=== PATIENT | male | born 1945 | race Caucasian/White ===

== ENCOUNTER 2018-09-01 11:30 | Emergency (ER) | payer OTHER ==
[~2018-09-01] VITALS: Ht 182.9 cm; Wt 74.8 kg
[2018-09-01 12:11] LABS: BASOPHILS ABSOLUTE AUTO 0.04 K/mm3 (0.00-0.23); BASOPHILS PERCENT AUTO 0 % (0-2); EOSINOPHILS ABSOLUTE AUTO 0.26 K/mm3 (0.00-0.68); EOSINOPHILS PERCENT AUTO 3 % (0-6); Hematocrit 45.5 % (37.0-53.0); Hemoglobin 15.2 g/dL (13.5-17.5); IMMATURE GRAN ABSOLUTE AUTO 0.02 K/mm3 (0.00-0.10); IMMATURE GRAN PERCENT AUTO 0 % (0-1); LYMPHOCYTES ABSOLUTE AUTO 1.75 K/mm3 (0.84-5.20); LYMPHOCYTES PERCENT AUTO 18 % (21-46); MONOCYTES ABSOLUTE AUTO 0.82 K/mm3 (0.16-1.47); MONOCYTES PERCENT AUTO 9 % (4-13); Mean Corpuscular HGB Conc 33.4 g/dL (31.5-36.5); Mean Corpuscular Volume 93 fL (80-100); Mean Platelet Volume 9.4 fL (9.1-12.4); NEUTROPHILS ABSOLUTE AUTO 6.61 K/mm3 (1.96-9.15); NEUTROPHILS PERCENT AUTO 70 % (41-73); Platelet Count 300 K/mm3 (150-400); RDW Coefficient Variation 12.4 % (11.7-14.2); RDW Standard Deviation 42.5 fL (35.1-46.3)
[2018-09-01 12:24] LABS: International Normalized Ratio 0.97; Prothrombin Time Results 10.3 Sec (9.7-11.5)
[2018-09-01 12:27] LABS: Alanine Aminotransfer (ALT/SGP 29 U/L (12-78); Albumin, Blood 3.8 g/dL (3.4-5.0); Alk Phos 58 U/L (50-136); Anion Gap 5 mmol/L (6-16); Aspartate Aminotrans (AST/SGOT 24 U/L (12-37); Bilirubin, Total 0.5 mg/dL (0.1-1.0); Blood Urea Nitrogen 16 mg/dL (8-24); Bun/Creatinine Ratio 18.5 (12.0-20.0); CO2, Blood 29 mmol/L (21-32); Calcium, Blood 8.7 mg/dL (8.5-10.1); Chloride, Blood 102 mmol/L (98-108); Creatinine, Blood 0.87 mg/dL (0.60-1.20); Globulin, Blood 3.7 g/dL (2.2-4.0); Glomerular Filtration Rate >60 (60-); Glucose, Blood 112 mg/dL (70-99); Potassium, Blood 4.4 mmol/L (3.5-5.5); Sodium, Blood 136 mmol/L (136-145); Total Protein, Blood 7.5 g/dL (6.4-8.2)
[2018-09-01 12:30] LABS: Troponin I <0.015 ng/mL (0.000-0.040)
== END 2018-09-01 14:10 | disposition home or self-care (01) ==
LOC: ER 11:30
PROVIDERS: Emergency Medicine
DX: J44.9 Chronic obstructive pulmonary disease, unspecified (principal); G89.29 Other chronic pain; Z88.0 Allergy status to penicillin; Z88.2 Allergy status to sulfonamides
CPT/HCPCS: 71046; 80053; 83735; 83880; 84443; 84484; 85025; 85610; 93005; 93010; 96360; 99285-25; J7030

== ENCOUNTER 2018-11-19 08:45 | Inpatient (IN) | payer MEDICARE ==
[~2018-11-19] VITALS: Ht 182.9 cm; Wt 70.3 kg
[2018-11-19] MEDS ORDERED: Inderal 20 mg T20 MG PT (09:08)
[2018-11-19 09:24] LABS: BASOPHILS ABSOLUTE AUTO 0.03 K/mm3 (0.00-0.23); BASOPHILS PERCENT AUTO 0 % (0-2); EOSINOPHILS ABSOLUTE AUTO 0.07 K/mm3 (0.00-0.68); EOSINOPHILS PERCENT AUTO 1 % (0-6); Hematocrit 46.3 % (37.0-53.0); Hemoglobin 15.2 g/dL (13.5-17.5); IMMATURE GRAN ABSOLUTE AUTO 0.02 K/mm3 (0.00-0.10); IMMATURE GRAN PERCENT AUTO 0 % (0-1); LYMPHOCYTES ABSOLUTE AUTO 0.86 K/mm3 (0.84-5.20); LYMPHOCYTES PERCENT AUTO 10 % (21-46); MONOCYTES ABSOLUTE AUTO 0.85 K/mm3 (0.16-1.47); MONOCYTES PERCENT AUTO 10 % (4-13); Mean Corpuscular HGB 30.5 pg (26.0-34.0); Mean Corpuscular HGB Conc 32.8 g/dL (31.5-36.5); Mean Corpuscular Volume 93 fL (80-100); Mean Platelet Volume 8.9 fL (9.1-12.4); NEUTROPHILS ABSOLUTE AUTO 6.55 K/mm3 (1.96-9.15); NEUTROPHILS PERCENT AUTO 78 % (41-73); Platelet Count 316 K/mm3 (150-400); RDW Coefficient Variation 12.2 % (11.7-14.2); RDW Standard Deviation 41.7 fL (35.1-46.3); Red Blood Cell Count 4.98 M/mm3 (4.30-5.90); White Blood Cell Count 8.38 K/mm3 (4.00-11.30)
[2018-11-19 09:37] LABS: PCO2 Arterial 43.4 mmHg (35-45); PO2 Arterial 58.8 mmHg (80-100); pH Blood Arterial 7.45 (7.35-7.45)
[2018-11-19 09:41] LABS: Influenza A Negative (NEGATIVE); Influenza B Negative (NEGATIVE)
[2018-11-19 09:43] LABS: Troponin I <0.015 ng/mL (0.000-0.040)
[2018-11-19 09:45] LABS: Alanine Aminotransfer (ALT/SGP 34 U/L (12-78); Albumin, Blood 3.6 g/dL (3.4-5.0); Alk Phos 60 U/L (50-136); Anion Gap 6 mmol/L (6-16); Aspartate Aminotrans (AST/SGOT 23 U/L (12-37); Bilirubin, Total 0.5 mg/dL (0.1-1.0); Blood Urea Nitrogen 9 mg/dL (8-24); Bun/Creatinine Ratio 12.7 (12.0-20.0); CO2, Blood 32 mmol/L (21-32); Chloride, Blood 98 mmol/L (98-108); Creatinine, Blood 0.71 mg/dL (0.60-1.20); Globulin, Blood 3.7 g/dL (2.2-4.0); Glomerular Filtration Rate >60 (60-); Glucose, Blood 130 mg/dL (70-99); Potassium, Blood 4.2 mmol/L (3.5-5.5); Sodium, Blood 136 mmol/L (136-145); Total Protein, Blood 7.3 g/dL (6.4-8.2)
[2018-11-19] MEDS ORDERED: MELA3 PO (12:43)
--- NOTE | 2018-11-19 18:30 | NUR ---
PATIENT ARRIVED TO MEDICAL FLOOR FROM ER. ADMISSION COMPLETED. PATIENT ORIENTED ROOM AND UNIT. PATIENT IN BED, LABORED BREATHING, ON ROOM AIR. DAUGHTER PRESENT AT BEDSIDE. BED LOW AND LOCKED, CALL LIGHT WITHIN REACH. WILL CONT TO MONITOR. NON SLIP SOCKS PLACED. TELE IN PLACE.
--- NOTE | 2018-11-19 22:12 | NUR ---
PT RESTING QUIETLY. CALL LT IN REACH.
--- NOTE | 2018-11-20 04:17 | NUR ---
SHIFT SUMMARY: ER ADMIT. A/O. HX OF PTSD PER DAUGHTER. ON RA. OCCASIONAL NECK PAIN WITH A TOLERABLE PAIN LEVEL OF 2-3. SR AT 67 WITH OCCASIONAL PAC'S. USES URINAL AT BEDSIDE. STATES DECREASE IN SOB. NO ACUTE CHANGES. WILL CONTINUE TO MONITOR UNTIL SHIFT REPORT.
[2018-11-20 04:31] LABS: BASOPHILS ABSOLUTE AUTO 0.01 K/mm3 (0.00-0.23); BASOPHILS PERCENT AUTO 0 % (0-2); EOSINOPHILS ABSOLUTE AUTO 0.01 K/mm3 (0.00-0.68); EOSINOPHILS PERCENT AUTO 0 % (0-6); Hematocrit 44.2 % (37.0-53.0); Hemoglobin 14.8 g/dL (13.5-17.5); IMMATURE GRAN ABSOLUTE AUTO 0.02 K/mm3 (0.00-0.10); IMMATURE GRAN PERCENT AUTO 0 % (0-1); LYMPHOCYTES ABSOLUTE AUTO 0.73 K/mm3 (0.84-5.20); LYMPHOCYTES PERCENT AUTO 9 % (21-46); MONOCYTES ABSOLUTE AUTO 0.54 K/mm3 (0.16-1.47); MONOCYTES PERCENT AUTO 7 % (4-13); Mean Corpuscular HGB 30.6 pg (26.0-34.0); Mean Corpuscular HGB Conc 33.5 g/dL (31.5-36.5); Mean Corpuscular Volume 91 fL (80-100); Mean Platelet Volume 8.8 fL (9.1-12.4); NEUTROPHILS ABSOLUTE AUTO 6.86 K/mm3 (1.96-9.15); NEUTROPHILS PERCENT AUTO 84 % (41-73); Platelet Count 289 K/mm3 (150-400); RDW Coefficient Variation 12.4 % (11.7-14.2); RDW Standard Deviation 40.9 fL (35.1-46.3); Red Blood Cell Count 4.84 M/mm3 (4.30-5.90); White Blood Cell Count 8.17 K/mm3 (4.00-11.30)
[2018-11-20 04:45] LABS: Alanine Aminotransfer (ALT/SGP 27 U/L (12-78); Albumin, Blood 3.4 g/dL (3.4-5.0); Albumin/Globulin Ratio 0.9 (0.8-1.8); Alk Phos 59 U/L (50-136); Anion Gap 7 mmol/L (6-16); Aspartate Aminotrans (AST/SGOT 18 U/L (12-37); Bilirubin, Total 0.4 mg/dL (0.1-1.0); Blood Urea Nitrogen 14 mg/dL (8-24); Bun/Creatinine Ratio 18.9 (12.0-20.0); CO2, Blood 31 mmol/L (21-32); Calcium, Blood 8.8 mg/dL (8.5-10.1); Chloride, Blood 96 mmol/L (98-108); Creatinine, Blood 0.74 mg/dL (0.60-1.20); Globulin, Blood 3.7 g/dL (2.2-4.0); Glomerular Filtration Rate >60 (60-); Glucose, Blood 147 mg/dL (70-99); Potassium, Blood 4.5 mmol/L (3.5-5.5); Sodium, Blood 134 mmol/L (136-145); Total Protein, Blood 7.1 g/dL (6.4-8.2)
[2018-11-20 05:05] LABS: PCO2 Arterial 49.3 mmHg (35-45); PO2 Arterial 69.2 mmHg (80-100); pH Blood Arterial 7.41 (7.35-7.45)
--- NOTE | 2018-11-20 17:10 | NUR ---
SHIFT SUMMARY PT INDEPENDENT IN ROOM. DOES HAVE DYSPNEA WITH ACTIVITY WALKING TO BATHROOM AND BACK. OTHERWISE REPORTS ONLY OCC INSPECTOR WATCH ASSEMBLY COUGH AND FEELINGS MUCH BETTER THAN WHEN HE FIRST ARRIVED. FAMILY IN AND OUT OF ROOM. DR. ATWOOD IN TO SEE PT AND PLANS FOR BRONCHOSCOPY TOMORROW AT 1330. TO BE NPO AT [facility].
[2018-11-21 04:41] LABS: BASOPHILS ABSOLUTE AUTO 0.01 K/mm3 (0.00-0.23); BASOPHILS PERCENT AUTO 0 % (0-2); EOSINOPHILS PERCENT AUTO 0 % (0-6); Hemoglobin 14.9 g/dL (13.5-17.5); IMMATURE GRAN ABSOLUTE AUTO 0.05 K/mm3 (0.00-0.10); IMMATURE GRAN PERCENT AUTO 0 % (0-1); LYMPHOCYTES ABSOLUTE AUTO 0.84 K/mm3 (0.84-5.20); LYMPHOCYTES PERCENT AUTO 6 % (21-46); MONOCYTES ABSOLUTE AUTO 0.98 K/mm3 (0.16-1.47); MONOCYTES PERCENT AUTO 7 % (4-13); Mean Corpuscular HGB Conc 33.9 g/dL (31.5-36.5); Mean Corpuscular Volume 92 fL (80-100); Mean Platelet Volume 9.1 fL (9.1-12.4); NEUTROPHILS ABSOLUTE AUTO 11.95 K/mm3 (1.96-9.15); NEUTROPHILS PERCENT AUTO 86 % (41-73); Platelet Count 314 K/mm3 (150-400); RDW Coefficient Variation 12.6 % (11.7-14.2); RDW Standard Deviation 42.4 fL (35.1-46.3); Red Blood Cell Count 4.81 M/mm3 (4.30-5.90); White Blood Cell Count 13.83 K/mm3 (4.00-11.30)
[2018-11-21 04:57] LABS: Anion Gap 3 mmol/L (6-16); Blood Urea Nitrogen 14 mg/dL (8-24); Bun/Creatinine Ratio 20.2 (12.0-20.0); CO2, Blood 33 mmol/L (21-32); Chloride, Blood 98 mmol/L (98-108); Creatinine, Blood 0.69 mg/dL (0.60-1.20); Glomerular Filtration Rate >60 (60-); Glucose, Blood 151 mg/dL (70-99); Potassium, Blood 4.6 mmol/L (3.5-5.5); Sodium, Blood 134 mmol/L (136-145)
--- NOTE | 2018-11-21 06:44 | NUR ---
Rn summary: Patient is alert and oriented. Pt has denied pain this shift. Pt is up independantly to the BR. Pt has been NPO since midnight for Bronchoscopy today at 1330. Pt states he has rested fairly well. Call light in reach. Will continue to monitor.
--- NOTE | 2018-11-21 13:12 | NUR ---
INTO SDS ADMISSION TO UNIT STARTED. PATINET VERIFIES NPO NO METAL IN BODY AND VERIFIES ALLERGIES
--- NOTE | 2018-11-21 13:47 | NUR ---
DAY SURGERY HERE TO PICK PT UP AT 1330 FOR PROCEDURE. OUT [employer]IA [employer]
--- NOTE | 2018-11-21 14:05 | NUR ---
11/21/18 1405 Minesh Estrada 3-LEAD EKG REVIEWED WITH PHYSICIAN PRIOR TO START OF PROCEDURE.Patient to ENDO 2History, Chart, Medications and Allergies reviewed before start of procedure.Glasses RemovedMONITOR INTACT WITH CONTINUOUS PULSE OXIMETRY AND INTERMITTENT BP.O2 VIA N/C INTACT THROUGHOUT SEDATION/PROCEDURE.
--- NOTE | 2018-11-21 14:37 | NUR ---
REPORT TO LOUANN WALDRON AND RN MEDICAL FLOOR
--- NOTE | 2018-11-21 18:34 | NUR ---
SHIFT SUMMARY PT RETURNED FROM BRONCHOSCOPY THIS AFTERNOON AWAKE AND ALERT. DAUGHTER AT BEDSIDE. SOUNDS ORALLY CONGESTED BUT REPORTS HE ISN'T COUGHING ANYTHING UP. NEEDED OXYGEN FOR APPROX 1 HOUR AFTER RETURN FROM PROCEDURE. KEPT NPO FOR 2 HOURS AFTER RETURN. TOLERATED JELLO AND DRINKS AFTER THAT. SUPPER ORDERED. WALKED IN HALLWAY USING FWW FOR SHORT DISTANCE AND REPORTED ONLY HIS LEGS FEELING WEAK.
--- NOTE | 2018-11-22 06:14 | NUR ---
PT is with chronic pain who has grown marijuana and smokerd it to telieve his chronic pain. he says he does not buy MJ and does not use chemicals to grow it. Discussed need to avoid smoke and other routes for pain relief. PT had bronchoscopy yesterday and he continues on IV antibiotics to treat URI. PT on [employer] oxygen monitor and has been on room air this AM with sats greater than 90%. No persistant bradycardia. PT alert and pleasant denies acute distress. DTR was in and got very aggitated with PT not having his nighttime meds by 910 pm. later said she was sorry, she is worried about her Dad and stressed. Support offered.
--- NOTE | 2018-11-22 16:21 | NUR ---
SHIFT SUMMARY PT INDEPENDENT IN ROOM. AMBULATED IN HALLWAY USING FWW APPROX 100 FT THIS MORNING. DAUGHTER AT BEDSIDE ON AND OFF. WENT FOR A MODIFIED BARIUM SWALLOW THIS MORNING AND NOW IS NPO DUE TO RISK OF ASPIRATION. PLANS FOR A PEG TUBE PLACEMENT FOR NUTRITIONAL SUPPORT. PT AGREEABLE AND CURRENTLY APPEARS IN [employer]. REPORTS HE HAD A SON THAT USED A FEEDING TUBE MANY YEARS AGO. ORAL CARE OFFERED.
--- NOTE | 2018-11-23 06:46 | NUR ---
73 year old [place] with agent [place] exposure has hx of BArretts esphagous and had modified barium swallow yesterday due to URI with large mucus plug seen on bronchoscopy 11/21/18. PT is NPO and reports DR Deal consulted and plans to place feeding tube. Weaned off oxygen to room air no desats noted on bioxx monitor. Did have bioxx alarm intermittantly for bradycardia transient in low 50'. Pleasant. Denies acute distress.
--- NOTE | 2018-11-23 14:46 | NUR ---
11/23/18 1446 Vida Pozo History, Chart, Medications and Allergies reviewed before start of procedure.Patient confirms NPO status and agrees with scheduled surgery. DUONEB GIVEN PREOP PER DR. KNUTSON. REJI GARRETT. SEE ANESTHETIC RECORD FOR CARE
--- NOTE | 2018-11-23 14:47 | NUR ---
PT INTO [facility] VIA [facility] FOR PEG TUBE. History, Chart, Medications and Allergies reviewed before start of procedure.Patient confirms NPO status and agrees with scheduled surgery. Surgical site prepped with 2% Chlorhexidine cloth wipe. CLIP PREP DONE TO ABDOMEN. PT ON SCHEDULED ANTIBIOTICS.
--- NOTE | 2018-11-23 18:22 | NUR ---
SHIFT SUMMARY OX3 SBA STEADY GAIT. PLEASANT, COOPERATIVE. OX4. PEG TUBE PLACED TODAY SITE HEALTHY GAUZED CLEAN AND DRY. DAUGHTER AT BEDSIDE AND ATTENTIVE. HX AGUILERA'S ESOPHAGUS. CLINIMIX. TRANSIENT BRADYCARDIA LOW 50'S. CONTINUOUS BIOX. USED MARIJUANA FOR CHRONIC PAIN ISSUES.
--- NOTE | 2018-11-24 05:18 | NUR ---
73 year old Male [place] with agent orange exposure in [employer] had peg tube place yesterday afternoon due to failing modified barium swallow 60 lb wt loss last year aspiration pneumonia. Peg tube clamped , oral sx set up and used Q 4 hours for oral care. NPO except for occasional ice chip per surgeon. On clinimix for nutritional support. Surgeon says of to use tube today, dietary referral for nutrional support. Intermittant nausea with zofran given. Lungs have cleared after NPO, bronchoscopy, egd. Verbalized understanding of tube feeding had Child with buttonand familair with tube feed bolus versus continous feed. Pleasant affect. Medicated for anxiety with 0.5 mg IV atavan x 1 with helpful effect. Preliminary results from bronch showed lelia alb in sputum. On IV antibiotics to tx aspiration pneumonia. DTR in and supportive.
--- NOTE | 2018-11-24 17:32 | NUR ---
SHIFT SUMMARY IRON HAS BEEN FEELING REALLY WEAK AND TIRED TODAY. COMPLAINS OF ABDOMINAL PAIN, GOT 5MG PO OXY BY PEG. PEG CLEARED BY DR RINCON FOR USE AND TF INITIATED, PT STILL NPO. CBG Q6 INITIATED. ORAL CARE OFFERED AND PROVIDED AT LEAST Q4 HRS. NO BM SINCE MONDAY, BOWEL PROTOCOL INITIATED. NO BLOATING/ABDOMINAL DISTENSION/ADDITIONAL DISCOMFORT ONCE TF INITIATED, STILL AT SLOW RATE OF 25ML/HR. USED URINAL IN BED, GOT UP TO BR ONCE WITH SBA, UNSTEADY ON FEET. DAUGHTER VISITED. CALL LIGHT IN REACH, TM
--- NOTE | 2018-11-25 03:55 | NUR ---
11/25/18 0345 AWAKENED FOR LABWORK AND VITALS. SELF SUCTIONS HIMSELF ORALLY OF SECRETIONS. NO COMPLAINTS AT THIS TIME. ORAL CARE WITH SWABS BY HIMSELF. VOIDING QS.
[2018-11-25 04:48] LABS: Anion Gap 6 mmol/L (6-16); Blood Urea Nitrogen 18 mg/dL (8-24); Bun/Creatinine Ratio 26.7 (12.0-20.0); CO2, Blood 35 mmol/L (21-32); Calcium, Blood 8.8 mg/dL (8.5-10.1); Chloride, Blood 90 mmol/L (98-108); Creatinine, Blood 0.67 mg/dL (0.60-1.20); Glomerular Filtration Rate >60 (60-); Glucose, Blood 119 mg/dL (70-99); Magnesium, Blood 1.9 mg/dL (1.6-2.4); Phosphorus, Blood 3.7 mg/dL (2.5-4.9); Potassium, Blood 4.2 mmol/L (3.5-5.5); Sodium, Blood 131 mmol/L (136-145)
--- NOTE | 2018-11-25 06:03 | NUR ---
11/25/18 0545 TUBE FEEDING RESIDUAL AT 2200 AND 0545 = <1 ML. FEEDING INCREASED TO 45ML/HOUR AT 2200 AND 60ML/HOUR AT 0545. PEG TUBE FLUSHES WELL AND DRESSING REMAINS DRY AND INTACT. VITALS STABLE. NPO. VOIDING QS. NO BM THIS SHIFT. MEDICATED TWICE FOR BACK/NECK DISCOMFORT. SEE MAR.
--- NOTE | 2018-11-25 16:41 | NUR ---
SHIFT SUMMARY- PT HAS BEEN TOLLERATING TUBE FEEDINGS WELL T/O THE DAY AND IS AT THE TARGET RATE FOR FEEDINGS. PT HAD A C/O PAIN IN THE AFTERNOON ONE DOSE OF PAIN MEDICAION. PT STATED PAIN IS WELL MANAGED AT THIS TIME. PT HAS ASSISTED WITH PEG TUBE MEDICATIONS TODAY ASKING QUESTIONS AND HANDS ON ASSISTING WITH THE TUBE. PT SEEMS MORE COMFORTABLE WITH IT AT THIS TIME. RESIDUAL WAS 50ML AT 0800, PT C/O NAUSEA BUT STATED HE DIDN'T QUITE NEED THE REGLAN NAUSEA SUBSIDED ON ITS OWN. PT C/O PAIN IN BACK AND ABDOMEN RESIDUAL CHECKED 25ML, MEDICATED WITH OXY AND MILK OF MAG. PT STATED THE PAIN HAS GONE AWAY WITH OCCASSIONAL PANGS IN THE STOMACH. MILK OF MAG HAS HAD NO RESULTS OF YET.
--- NOTE | 2018-11-26 04:06 | NUR ---
11/26/18 0315 C/O BACK PAIN AND MEDICATED PER APR. PEG TUBE IN PLACE AND PATENT. DENIES ANY NAUSEA JUST OCC. "CRAMPING " IN ABDOMEN. WAS UP TO BATHROOM WITH SBA FOR VOIDING AND FLATUS EXPULSION. NO BM. RESIDUALS ON PEG FEEDINGS WERE 12 AND 15 ML. FEEDINGS AT 60ML/HOURS WITH WATER FLUSHES PER ORDER Q 4 HOURS.
[2018-11-26 05:04] LABS: Magnesium, Blood 1.9 mg/dL (1.6-2.4); Phosphorus, Blood 3.4 mg/dL (2.5-4.9)
--- NOTE | 2018-11-26 07:20 | NUR ---
ASSUMED CARE OF PT- RECIEVED REPORT FROM NIGHT JOSE ANTONIO DUDLEY. PT ALERT, ORIENTED, 1PA WITH TRANSFERS FOR SAFETY AND IS CURRENTLY SITTING UP IN THE CHAIR. PT STATED HE HAD SOME SEVERE STOMACH CRAMPING THIS MORNING BUT IS FEELING ALOT BETTER NOW THAN HE WAS. WILL ASSESS SHORTLY AND CTM.
--- NOTE | 2018-11-26 07:46 | NUR ---
SPOKE TO DR RINCON PT SBP 104 THIS MORNING OK TO HOLD PROPRANOLOL THIS MORNING. NEW PARAMETERS PLACED YO HOLD FOR SBP BELOW 110.
--- NOTE | 2018-11-26 08:26 | NUR ---
PATIENT DID NOT EAT BREAKFAST THIS SHIFT DUE TO BEING NPO AT THIS TIME.
[2018-11-26] MEDS ORDERED: ALBU2.5V5 INH (10:23)
[2018-11-26] MEDS ORDERED: BISA10S PR (10:26)
[2018-11-26] MEDS ORDERED: Docu Liqui50 MG/5 ML PT (10:27)
[2018-11-26] MEDS ORDERED: ALBU3IS INH (10:29)
[2018-11-26] MEDS ORDERED: LORA2L PO (10:30)
[2018-11-26] MEDS ORDERED: Milk Of Ma400 MG/5 M PT (10:31)
[2018-11-26] MEDS ORDERED: ONDA4ODT MM (10:33)
[2018-11-26] MEDS ORDERED: ROXICODONE5 MG PT (10:34)
[2018-11-26] MEDS ORDERED: Florastor250 MG PT (10:35)
[2018-11-26] MEDS ORDERED: CLIN300 PT (10:38)
--- NOTE | 2018-11-26 12:43 | NUR ---
PATIENT DID NOT EAT LUNCH THIS SHIFT DUE TO BEING NPO AT THIS TIME.
[2018-11-26] MEDS ORDERED: FAMO20 PT (14:38)
--- NOTE | 2018-11-26 17:52 | NUR ---
Initial Visit: Pt alert, oriented. Admitted for pneumonia, aspiration. PEG tube is placed. Pt has been interactive with nursing and learning how to do medications and tube feedings through the PEG. Pt denies pain at this time, seems a little anxious. Reports that he feels comfortable asking for anxiety medication as he needs it. Apparently, he felt panic today. He didn't require medication at that time. He states that the panic and anxiety resolved after 10 min or so. Pt is getting new IV placed. Due to insurance complications, pt wasn't sent today to SNF. it communications manager is addressing it and hopeful that a solution is found tomorrow. Reviewed code status. Pt didn't know what FULL code was. This was explained. Pt appears to be under some stress and emotional strain with his new lifestyle with the PEG. POLST form and advance directive explained and given to his daughter. She lives with him and helps him when he needs it. They have several acres of wetland in [place]. He states that this is a preserved area and nothing can be built on it so that it keeps the wildlife there. He reports pleasure at watching the birds on his property. Pt and daughter verbalize understanding of uses and purpose of POLST and advance directive forms. Instructed to review it together at home, when he is not under duress of hospitalization. No other questions or concerns.
--- NOTE | 2018-11-26 18:46 | NUR ---
PATIENT DID NOT EAT DINNER THIS SHIFT DUE TO BEING NPO AT THSI TIME.
--- NOTE | 2018-11-26 18:53 | NUR ---
SHIFT SUMMARY- PT WAS SUPPOSED TO DC TODAY HOWEVER THERE WERE COMPLICATIONS WITH THE PAPERWORK. JOSE ANTONIO VERGARA FROM [employer] IS ON THE CASE. PT IV WAS DC'D PRIOR TO THE PLANNED DISCHARGE. A NEW ONE WAS PLACED IN THE RIGHT FORE ARM, THAT INFILTRATED WITH THE ABX INFUSING. REMOVED IT AND PLACED A NEW IV IN THE LEFT FORE ARM.
--- NOTE | 2018-11-27 04:03 | NUR ---
11/27/18 0400 SLEEPING. PEG TUBE FEEDING TOLERATED WELL. RESIDUALS LESS THAN 10 ML. MEDICATED FOR PAIN AND ANXIETY AT 2109 AND PT HAD GOOD RELIEF FROM BOTH. STATED EARLIER THAT THIS WAS HIS BEST NIGHT'S SLEEP "SO FAR". VITALS STABLE. VOIDING SQ AND HAD ONE BM ON DAY SHIFT.
[2018-11-27 05:18] LABS: Phosphorus, Blood 3.7 mg/dL (2.5-4.9)
--- NOTE | 2018-11-27 08:32 | NUR ---
PATIENT DID NOT EAT BREAKFAST THIS SHIFT DUE TO BEING NPO AT THIS TIME.
--- NOTE | 2018-11-27 17:20 | NUR ---
SHIFT SUMMARY: PT IS A/O X 4 AND VERY PLEASANT AND COOPERATIVE WITH HIS CARE. HE HAS NO C/O PAIN. PUMP TUBE FEEDINGS WERE DCD TODAY AND CHANGED TO BOLUS FEEDINGS PER ORDERS. SO FAR PT IS TOLERATING BOLUS FEEDING WELL WITH NO RESIDUAL NOTED. EDUCATION COMPLETED WITH PT RE TUBE FEEDINGS AND PT IS EASGER TO LEARN AND MANAGE HIS OWN CARE. IV ABO INFUSED ORDERED WITH NO ISSUES. PT IS ABLE TO MAKE HIS NEEDS KNOWN AND UESE URINAL AT BEDSIDE NEEDED.
--- NOTE | 2018-11-28 04:42 | NUR ---
SCIENTIFIC SOFTWARE ENGINEER SUMMARY NOTE PATIENT TOLERATING BOLUS TUBE FEEDS WELL WITHOUT RESIDUALS OR DISCOMFORT. ABLE TO PARTICIPATE IN PROCESS WITHOUT DIFFICULTLY. . COMPLAINTS OF LOW BACK PAIN AROUND 0300 AND GOT UP IN CHAIR FOR RELIEF. OXYCODONE GIVEN PER ORDER PER PEG TUBED, STOOL PLACED FOR FEET AND KPAD SET UP TO AID IN RELIEF. PATIENT STATED PAIN DECREASED FROM 5/10 TO 3/10 WHICH WAS TOLERABLE. PATIENT EXCITED TO BE GETTING READY TO GO HOME.
--- NOTE | 2018-11-28 18:21 | NUR ---
DISCHARGE AT 1725 PATIENT DISCHARGED HOME WITH DAUGHTER. 2 CASES OF TUBE FEED CARTONS SENT WITH PATIENT. PORTABLE HOME SUCTION UN[facility] BY DAUGHTER AND RT INSTRUCTED PATIENT AND DAUGHTER HOW TO USE. PT TOLERATED ALL TUBE FEEDS AND FLUSHES TODAY, CAN MANAGE HIMSELF. DC PACKET GIVEN TO PATIENT, MED CHANGES EXPLAINED. IV REMOVED. PT SIGNED DC FORM.
== END 2018-11-28 17:25 | disposition home health service (06) | DRG 177 ==
LOC: ER 08:45 → MEDS 08:46 → ERHOLD 08:46 → MEDS 17:48 → EDPENDDIS 11-26 10:37 → ENPENDDIS 11-26 10:37 → MEDS 11-28 17:25
PROVIDERS: Internal Medicine; Internal Medicine Pulmonary Disease; Nurse Practitioner Acute Care; Physician Assistant; ADMIT Internal Medicine
PROC: 0B9J8ZX Drainage of Left Lower Lung Lobe, Via Natural or Artificial Opening Endoscopic, Diagnostic (ICD-10-PCS; principal; 2018-11-21 13:30)
PROC: 0DH63UZ Insertion of Feeding Device into Stomach, Percutaneous Approach (ICD-10-PCS; 2018-11-23)
DX: J69.0 Pneumonitis due to inhalation of food and vomit (principal); E43 Unspecified severe protein-calorie malnutrition; J96.22 Acute and chronic respiratory failure with hypercapnia; J96.21 Acute and chronic respiratory failure with hypoxia; E87.1 Hypo-osmolality and hyponatremia; J44.1 Chronic obstructive pulmonary disease with (acute) exacerbation; R64 Cachexia; K80.10 Calculus of gallbladder with chronic cholecystitis without obstruction; G89.4 Chronic pain syndrome; F12.10 Cannabis abuse, uncomplicated; Z87.891 Personal history of nicotine dependence; R13.12 Dysphagia, oropharyngeal phase; K44.9 Diaphragmatic hernia without obstruction or gangrene; K29.80 Duodenitis without bleeding; K22.70 Barrett's esophagus without dysplasia; Z68.21 Body mass index [BMI] 21.0-21.9, adult; K59.00 Constipation, unspecified
CPT/HCPCS: 36415; 36600; 71045; 71046; 71260; 74230; 76705; 80048; 80053; 82378; 82803; 82947; 83735; 83880; 84100; 84145; 84484; 85025; 87070; 87205; 87804; 92610; 92611; 93005; 93010; 94640; 94667; 94760; 94761; 94762; 96365-59; 96372; 96375-59; 96376; 97110; 97116; 97161; 97165; 97530; 97535; 99285-25; A9270; C1769; C9113; G0378; J0694; J1650; J1956; J2001; J2060; J2250; J2704; J2920; J2930; J3010; J7050; J7120; J7512; Q9967

== ENCOUNTER 2018-12-01 21:34 | Inpatient (IN) | payer OTHER, MEDICARE ==
[~2018-12-01] VITALS: Ht 182.9 cm; Wt 71.2 kg
[~2018-12-01 21:34] MED LIST: ALBU2.5V5 NEB; ALBU3IS NEB; BISA10S PR; CLIN300 PT; Docu Liqui50 MG/5 ML PT; FAMO20 PT; Florastor250 MG PT; Inderal 20 mg T20 MG PT; LORA2L PT; Milk Of Ma400 MG/5 M PT; ONDA4ODT MM; ROXICODONE5 MG PT
[2018-12-01 21:48] LABS: BASOPHILS ABSOLUTE AUTO 0.03 K/mm3 (0.00-0.23); BASOPHILS PERCENT AUTO 0 % (0-2); EOSINOPHILS ABSOLUTE AUTO 0.24 K/mm3 (0.00-0.68); EOSINOPHILS PERCENT AUTO 1 % (0-6); Hematocrit 39.7 % (37.0-53.0); Hemoglobin 13.4 g/dL (13.5-17.5); IMMATURE GRAN PERCENT AUTO 1 % (0-1); LYMPHOCYTES ABSOLUTE AUTO 0.94 K/mm3 (0.84-5.20); LYMPHOCYTES PERCENT AUTO 4 % (21-46); MONOCYTES ABSOLUTE AUTO 2.21 K/mm3 (0.16-1.47); MONOCYTES PERCENT AUTO 9 % (4-13); Mean Corpuscular HGB 31.1 pg (26.0-34.0); Mean Corpuscular HGB Conc 33.8 g/dL (31.5-36.5); Mean Corpuscular Volume 92 fL (80-100); NEUTROPHILS ABSOLUTE AUTO 21.47 K/mm3 (1.96-9.15); NEUTROPHILS PERCENT AUTO 86 % (41-73); Platelet Count 353 K/mm3 (150-400); RDW Coefficient Variation 11.8 % (11.7-14.2); RDW Standard Deviation 40.1 fL (35.1-46.3); Red Blood Cell Count 4.31 M/mm3 (4.30-5.90); White Blood Cell Count 25.09 K/mm3 (4.00-11.30)
[2018-12-01 21:50] LABS: Calcium, Ionized (POC) 1.07 mmol/L (1.10-1.46); Chloride (POC) 82 mmol/L (98-108); Creatinine (POC) 0.6 mg/dL (0.8-1.3); Glucose (ISTAT POC) 163 mg/dL (70-99); Potassium (POC) 4.9 mmol/L (3.5-5.5); Sodium (POC) 120 mmol/L (135-148); Total CO2 (POC) 33 mmol/L (21-32)
[2018-12-01 22:09] LABS: Alanine Aminotransfer (ALT/SGP 20 U/L (12-78); Albumin, Blood 2.7 g/dL (3.4-5.0); Albumin/Globulin Ratio 0.7 (0.8-1.8); Alk Phos 58 U/L (50-136); Anion Gap 3 mmol/L (6-16); Aspartate Aminotrans (AST/SGOT 14 U/L (12-37); Bilirubin, Total 0.5 mg/dL (0.1-1.0); Blood Urea Nitrogen 15 mg/dL (8-24); Bun/Creatinine Ratio 26.3 (12.0-20.0); CO2, Blood 36 mmol/L (21-32); Calcium, Blood 8.4 mg/dL (8.5-10.1); Chloride, Blood 83 mmol/L (98-108); Creatinine, Blood 0.57 mg/dL (0.60-1.20); Globulin, Blood 3.7 g/dL (2.2-4.0); Glomerular Filtration Rate >60 (60-); Glucose, Blood 158 mg/dL (70-99); Sodium, Blood 122 mmol/L (136-145); Total Protein, Blood 6.4 g/dL (6.4-8.2); Troponin I <0.015 ng/mL (0.000-0.040)
[2018-12-01] MEDS ORDERED: MELA3 PT (22:13)
--- NOTE | 2018-12-02 00:45 | NUR ---
PT ARRIVES TO ICU 15 VIA BED FROM THE [facility] POST PCI TO MID AND DISTAL RCA. PT IS ALERT AND ORIENTED AND SPEAKING IN FULL SENTENCES. HE DENIES CP ALTHOUGH ADMITS TO SOME CHEST PRESSURE WHICH HE RATES 2-3/10, HE DENIES N/V, DENIES NUMBNESS/TINGLING AND ADMITS TO SOME SHORTNESS OF BREATH WHICH HAS BEEN ONGOING FOR SOME TIME, RECENT ADMIT WITH DX OF PNEUMONIA WAS NOTED. NO VISIBLE INCREASED WORK OF BREATHING IS NOTED AT THIS TIME AND LUNGS ARE CLEAR THROUGHOUT WITH DIM BASES BILAT, SATS ARE MAINTAINING ON ROOM AIR. HRR, SINUS TO SINUS NORMA ON MONITOR, ST ELEVATION CONTINUES AND PER [facility]ENTER RN THIS HAS BEEN ONGOING AND DR SALAS IS AWARE, PULSES ARE FULL X 4, CAP REFILL IS BRISK, NO EDEMA IS NOTED. TR BAND IN PLACE TO RIGHT RADIAL ACCESS SITE, NO BLEEDING, SWELLING, OR BRUISING IS NOTED AT THIS TIME, WILL CONT TO MONITOR. ABD SOFT, NONTENDER TO PALPATION, ACTIVE BOWEL TONES X 4, PEG TUBE IS NOTED TO LEFT ABD, GAUZE DRESSING IS CDI, NO REDNESS, SWELLING, OR DRAINAGE NOTED AT THIS TIME.
--- NOTE | 2018-12-02 02:55 | NUR ---
TR BAND DEFLATION 1 ML AIR REMOVED FROM TR BAND, SITE REMAINS STABLE AT THIS TIME, WILL MONITOR.
--- NOTE | 2018-12-02 03:16 | NUR ---
TR BAND DEFLATION 2 ML AIR REMOVED FROM TR BAND, SITE REMAINS STABLE AT THIS TIME, WILL CONT TO MONITOR.
--- NOTE | 2018-12-02 03:28 | NUR ---
TR BAND DEFLATION 2 ML AIR REMOVED FROM TR BAND, SITE REMAINS STABLE, WILL CONT TO MONITOR.
--- NOTE | 2018-12-02 03:47 | NUR ---
TR BAND DEFLATION 2 ML AIR REMOVED FROM TR BAND, SITE REMAINS STABLE, WILL CONT TO MONITOR.
--- NOTE | 2018-12-02 03:59 | NUR ---
TR BAND DEFLATION 2 ML AIR REMOVED FROM TR BAND, SITE REMAINS STABLE, WILL CONT TO MONITOR.
--- NOTE | 2018-12-02 04:22 | NUR ---
TR BAND DEFLATION TR BAND DEFLATION COMPLETE, SITE REMAINS STABLE AT THIS TIME, WILL CONT TO MONITOR.
--- NOTE | 2018-12-02 05:30 | NUR ---
TR BAND REMOVED, SITE CLEANSED WITH CHLORHEXIDINE AND TEGADERM DRESSING APPLIED. MOVEMENT RESTRICTIONS REINFORCED TO PT. SITE REMAINS STABLE.
[2018-12-02 06:09] LABS: Hemoglobin 13.3 g/dL (13.5-17.5); Mean Corpuscular HGB 30.9 pg (26.0-34.0); Mean Corpuscular HGB Conc 34.1 g/dL (31.5-36.5); Mean Corpuscular Volume 91 fL (80-100); Mean Platelet Volume 8.9 fL (9.1-12.4); Platelet Count 301 K/mm3 (150-400); RDW Coefficient Variation 11.9 % (11.7-14.2); RDW Standard Deviation 39.7 fL (35.1-46.3); Red Blood Cell Count 4.31 M/mm3 (4.30-5.90); White Blood Cell Count 21.61 K/mm3 (4.00-11.30)
--- NOTE | 2018-12-02 06:21 | NUR ---
PT FREQUENTLY AWAKE SINCE ADMIT THIS SHIFT, HAS COMPLAINED OF ANXIETY AND REQUESTED HIS HOME DOSE OF LORAZEPAM AFTER ARRIVAL FROM [facility]. LORAZEPAM WAS ADMINISTERED VIA PEG TUBE AND PT HAS BEEN NOTED TO APPEAR TO SLEEP FOR PERIODS OF LESS THAN 30 MINUTES AFTER TIME OF ONSET HOWEVER HIS DAUGHTER WHO REMAINS AT BEDSIDE REPORTS THAT PT HAS BEEN STARTLING HIMSELF AWAKE. HE CONTINUES TO HAVE ST ELEVATION APPARENT ON MONITOR, DR SALAS REPORTED TO BE AWARE AND FOLLOW UP EKG WAS ORDERED FOR THIS AM AND COMPLETED. PT HAS DENIED CHEST PAIN SINCE ARRIVAL AND ADMITS TO CHEST PRESSURE RATED AT 2-3/10. HIS TR BAND WAS DEFLATED AND REMOVED FROM RIGHT RADIAL ACCESS SITE WHICH REMAINS STABLE AT THIS TIME. THERE IS AN AREA OF FIRMNESS NOTED TO FOREARM IMMEDIATELY DISTAL TO RIGHT AC ON ELECTRODE PLACEMENT FOR AM EKG, THERE WERE NO CHANGES TO THIS AREA OVER 30 MINUTES AT BEDSIDE, PT STATES THAT HE IS UNSURE IF THIS IS A CHANGE FROM BASELINE, COMPARED TO LEFT FOREARM AND DISCUSSED WITH HOME ORGANIZER. HE DOES ADMIT TO SOME SHORTNESS OF BREATH HOWEVER HAS DECLINED UDN UNTIL AFTER AM LAB DRAW, RT WAS NOTIFIED OF PT REQUEST, CURRENTLY AWAITING ARRIVAL.
[2018-12-02 06:36] LABS: Anion Gap 4 mmol/L (6-16); Blood Urea Nitrogen 13 mg/dL (8-24); Bun/Creatinine Ratio 25.4 (12.0-20.0); CO2, Blood 33 mmol/L (21-32); CPK Creatine Kinase 41 U/L (39-308); Chloride, Blood 86 mmol/L (98-108); Creatinine, Blood 0.51 mg/dL (0.60-1.20); Glomerular Filtration Rate >60 (60-); Glucose, Blood 161 mg/dL (70-99); Potassium, Blood 4.6 mmol/L (3.5-5.5); Sodium, Blood 123 mmol/L (136-145)
[2018-12-02 06:40] LABS: Troponin I 0.074 ng/mL (0.000-0.040)
--- NOTE | 2018-12-02 08:00 | NUR ---
INITIAL ASSESSMENT PATIENT RESTING QUIETLY IN BED UPON ENTERING ROOM. DAUGHTER ON COT AT BEDSIDE. PATIENT ALERT AND ORIENTED X 4, AFEBRILE. PATIENT DENIES PAIN AT THIS TIME. PATIENT ANXIOUS AT TIMES AND STATES HE TAKES ATIVAN AT HOME FOR ANXIETY. PATIENT WEAK BUT ABLE TO MOVE ALL EXTREMITIES. PATIENT REPORTS CHRONIC NUMBNESS IN FINGERS AND TOES. PATIENT SATTING 90% AND GREATER ON RA. INSPIRATORY RHONCHI AUSCULTATED. PATIENT REPORTS OCCASIONAL PRODUCTIVE COUGH AND STATES THAT IT RANGES FROM CLEAR TO YELLOW, FROM SMALL TO LARGE AMOUNTS AND FROM THIN TO THICK. PATIENT IN SR WITH OCCASIONAL PACS AND ST ELEVATION. HR 70S TO 80S. BP STABLE. PULSES STRONG. NO EDEMA NOTED. HYPOACTIVE BS NOTED. LAST BM YESTERDAY. PATIENT HAS PEG TUBE THAT WAS PLACED LAST HOSPITALIZATION FOR PROBLEMS WITH ASPIRATION. HX OF AGUILERA'S ESOPHAGUS. PATIENT DOES BOLUS FEEDS AT HOME. DIETARY CONSULT ORDERED. PATIENT USING BEDSIDE URINAL. URINE DARK JOCELYNN IN COLOR. ACTUARIAL TECHNICIAN ACCESS SITE TO R RADIAL. SITE WNL- NO BLEEDING, BRUISING, HEMATOMA NOTED. ARMBOARD IN PLACE. UPPER FA, ABOVE WHERE TR BAND WAS PLACED, IS SLIGHTLY SWOLLEN AND DUSKY. CORPSMAN NURSE REPORTS THAT SITE HAS REMAINED UNCHANGED DURING NIGHT. NS INFUSING AT 100 MLS/ HOUR X 1 LITER. BED LOW, CALL LIGHT IN REACH. WILL CONTINUE TO MONITOR PATIENT FREQUENTLY THROUGHOUT SHIFT.
--- NOTE | 2018-12-02 12:20 | NUR ---
PATIENT SITTING QUIETLY IN CHAIR UPON ENTERING ROOM. DAUGHTER AT BEDSIDE. PATIENT REMAINS WEAK BUT STRENGTH IS IMPROVED SOME. PATIENT AMBULATING TO TOILET/ TRANSFERRING WELL WITH 1 PERSON ASSIST. LUNGS DIMINISHED THROUGHOUT. HR 50S TO 70S. BP STABLE. PATIENT REMAINS IN SB/SR WITH OCCASIONAL PACS AND ST ELEVATION. RESIDUAL FROM PEG TUBE OF 80 MLS OBTAINED AND REINSTILLED. PATIENT BEING GIVEN BOLUS FEEDINGS. PATIENT HAD BM THIS AM. NO OTHER ACUTE CHANGES TO NOTE ON AT THIS TIME. PATIENT HAS NO CURRENT COMPLAINTS. CALL LIGHT IN REACH. WILL CONTINUE TO MONITOR.
--- NOTE | 2018-12-02 12:30 | NUR ---
DR. SALAS IN UNIT TO SEE PATIENT. UPDATED DOCTOR ON PATIENT STATUS. LOOKED AT R RADIAL SITE AND R FA WITH DOCTOR. POINTED OUT THAT PATIENT'S UPPER FA HAS BEEN SLIGHTLY SWOLLEN AND DUSKY IN COLOR BUT HAS NOT BEEN CHANGING IN APPEARANCE SINCE ARRIVAL TO ICU PER PREVIOUS MIX MILL TENDER NURSE. DOCTOR ASSESSED SIGHT AND STATED TO PLACE COBAN ON TIGHTLY TO HELP WITH HEMATOMA FOR 4-6 HOURS AND THEN REMOVE. ORDERS RECEIVED.
--- NOTE | 2018-12-02 15:58 | NUR ---
SHIFT SUMMARY PATIENT RESTING QUIETLY IN BED. NO COMPLAINTS. PATIENT HAS REMAINED AFEBRILE. PATIENT GIVEN PRN ATIVAN OT FOR OCCASIONAL ANXIETY. LUNGS DIMINISHED. PATIENT HAS REMAINED SATTING 90% AND GREATER ON RA. PATIENT HAS OCCASIONAL PRODUCTIVE COUGH. PATIENT HAS BEEN IN SB TO SR WITH OCCASIONAL PACS AND ST ELEVATION. HR HAS RANGED MOSTLY FROM 50S TO 80S. BP HAS REMAINED STABLE. BOLUS FEEDS STARTED INTO PEG TUBE. PATIENT HAS BEEN TOLERATING WELL. RESIDUALS HAVE BEEN BETWEEN 45 AND 80 MLS. PATIENT HAD 1 BM THIS SHIFT. URINE HAS BEEN DARK JOCELYNN IN COLOR. COBAN TO UPPER R FA TO HELP DECREASE HEMATOMA. DR. SALAS ASSESSED EARLIER. PATIENT RECENTLY CRAWLED OUT OF BED TO USE TOILET WHILE PRIMARY NURSE ON LUNCH. CHARGE NURSE HELPED BACK TO BED AND FOUND THAT R RADIAL SITE OOZING SLIGHTLY. CHARGE NURSE APPLIED DANIELLE AND TEGADERM DRESSING. SITE APPEARS STABLE AT THIS TIME. ARMBOARD IN PLACE. IV SALINE LOCKED. ECHO ORDERED. BED LOW, CALL LIGHT IN REACH. REPORT WILL BE GIVEN TO ASSUMING NURSE.
--- NOTE | 2018-12-02 17:28 | NUR ---
ASSUMED CARE OF PT AT 1600. REPORT FROM ARNULFO BRADY. RIGHT RADIAL SITE VERIFIED c RN. DANIELLE AND TEGADERM IN PLACE. NO ACTIVE BLEEDING NOTED. COBAN REMOVED FROM RIGHT FOREARM. SWELLING NOTED BELOW COBAN, UNCHANGED FROM PREVIOUS ASSESSMENT. AWAITING PCU ROOM ASSIGNMENT. WILL REPORT TO ONCOMING NURSE.
--- NOTE | 2018-12-02 18:30 | NUR ---
REPORT TO BARBARA BRADY. PT TRANSFERRED TO [facility]. ALL BELONGINGS c PT. SITE VERIFIED oma JIMENEZ RN.
--- NOTE | 2018-12-02 18:45 | NUR ---
ARRIVAL PT RECEIVED FROM ICU. ALERT AND ORIENTED. RIGHT WRIST SOFT, NO BLEED OR HEMATOMA, DANIELLE DRSG CDI. FOREARM SITE SOFT ON PALPATION, NO HEMATOMA NOTED. PT ORIENTED TO ROOM, DAUGHTER AT BEDSIDE. WILL MONITOR AND REPORT OFF TO BODY WORK AUTO TRIMMER RN.
--- NOTE | 2018-12-03 04:26 | NUR ---
SHIFT SUMMARY PT STATES HE DID NOT SLEEP WELL THROUGH NIGHT, HOWEVER MULTIPLE TIMES I WENT INTO ROOM, SAID NAME, TOUCHED ON SHOULDER, GOT NO RESPONSE OTHER THAN REGULAR BREATHING/SNORING. DID RECEIVE X2 DOSES OF ATIVAN PT FOR ANXIETY. RADIAL ACCESS SITE C/D/I, MAINTAINED ARM BOARD FOR STABILITY AND REMINDED PT. NOT TO USE ARM. NO S/S OF BLEEDING. ~ 2100 12/02 PT CONVERVTED INTO A FIB 130S. BP STABLE, NO C/O PAIN, DIZZINESS. PT WAS STARTED ON AMIODARONE, HEPARIN DRIPS PER DR. SALAS. OTHERWISE NO CHANGES THROUGH NIGHT. VSS. WILL CONTINUE TO MONITOR.
[2018-12-03 10:44] LABS: International Normalized Ratio 1.02; Prothrombin Time Results 10.8 Sec (9.7-11.5)
--- NOTE | 2018-12-03 10:58 | NUR ---
AFIB TO SR PT CONVERTED TO SR. DR PALENCIA HERE TO SEE. NO ORDERS OR EKG REQUESTED. VSS. PT RESTING QUIETLY ON AMIODORONE. CONTINUE POT.
--- NOTE | 2018-12-03 15:16 | NUR ---
Spiritual care visit conducted. Patient is lying in bed and alert with daughter Shawna souza. 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 Patient also shares the personal internal struggles that are part of what makes up the anxiety he faces and we talk about his coping skills and resources. I listen empathically, normalize patient experience, provide a calming presence and provide some anxiety containment. Patient responds well and shows signs of reduced stress. I will continue to remain available to patient and family.
--- NOTE | 2018-12-04 06:34 | NUR ---
SHIFT SUMMARY PT RESTING IN ROOM COMFORTABLY AT THIS TIME. NO ACUTE CHANGES IN STATSU T/O NIGHT. PT SLEPT WELL AND CALLED FOR PAIN MEDS AND ANXIETY EDS ONCE DURING NIGHT. PT DAUGHTER AT BEDSIDE T/O NIGHT. RESP EVEN UNLABORED ON RA W/ SATS >92%. PT DENIED CP OR SOB T/O NIGHT. PEG TUBE IN PLACE TO GRAVITY BOLUS FEEDINGS AND MEDS. PT IS SL AT THIS TIME. SELF SUCTIONS PRN. DENIES OTHER NEEDS. CALL LIGHT IN REACH.
--- NOTE | 2018-12-04 08:00 | NUR ---
pt sitting up in recliner chair, a/ox3, daughter in room. pt denies complaints. lungs are clear t/o, dim in bases, resp even and unlabored, no cough noted, hrr, tele in place running sr per monitor, see strip, no edema noted, ppp+2, cap refill <3sec, vs stable, afebrile, iv site is clear and patent, btx4, abd flat soft nontender, voids with out diff, skin c/w/d, has dressing from angio site, is c/d/i, maew, uses walker to ambulate, but is very deconditioned, mary ann, call light in reach.
[2018-12-04] MEDS ORDERED: Amiodarone HCl200 MG PT (08:53)
[2018-12-04] MEDS ORDERED: ASPI81CH PT (08:55)
[2018-12-04] MEDS ORDERED: ATOR40TA PT (09:36)
[2018-12-04] MEDS ORDERED: CLOP75 PT (09:37)
[2018-12-04] MEDS ORDERED: XARELTO20 MG PT (09:38)
--- NOTE | 2018-12-04 12:39 | NUR ---
pt will be going home today, he is anxious to get home. paper work was faxed to [facility], for his new meds. waiting on daugter to go over instructions. call light in reach.
--- NOTE | 2018-12-04 14:33 | NUR ---
pt has been discharged to home, dressing changed on peg tube, went over discharge instructions with him and daughter, they verbalized understanding, new meds were faxed to [facility], and daughter picked them up. ivx2 removed intact. pt left via wheelchair with injection machine operator in attendence.
== END 2018-12-04 14:35 | disposition home or self-care (01) | DRG 247 ==
LOC: ER 21:34 → ICUW 21:51 → ER 21:51 → ICUW 23:00 → PCU 12-02 18:46 → ICUW 12-02 18:46 → PCU 12-02 18:46
PROVIDERS: Physician Assistant; ADMIT Internal Medicine Cardiovascular Disease
PROC: 027035Z Dilation of Coronary Artery, One Artery with Two Drug-eluting Intraluminal Devices, Percutaneous Approach (ICD-10-PCS; principal; 2018-12-01)
PROC: B2111ZZ Fluoroscopy of Multiple Coronary Arteries using Low Osmolar Contrast (ICD-10-PCS; 2018-12-01)
DX: I21.19 ST elevation (STEMI) myocardial infarction involving other coronary artery of inferior wall (principal); Z87.891 Personal history of nicotine dependence; I48.0 Paroxysmal atrial fibrillation; I25.10 Atherosclerotic heart disease of native coronary artery without angina pectoris
CPT/HCPCS: 36415; 71045; 80047; 80048; 80053; 82550; 83880; 84484; 85014; 85025; 85027; 85347; 85610; 85730; 93005; 93010; 93306; 93454; 94640; 94667; 94760; 97162; 97166; 97530; 97535; 99152; 99153; 99291-25; 99292; C1725; C1769; C1874; C1887; C1894; C9600; C9606; J0153; J0282; J0461; J1644; J2250; J3010; J3475; J7030; J7060; Q9967

== ENCOUNTER 2018-12-06 10:30 | Inpatient (IN) | payer OTHER, MEDICARE ==
[~2018-12-06] VITALS: Ht 182.9 cm; Wt 84.2 kg
[~2018-12-06 10:30] MED LIST changes: +ASPI81CH PT; +ATOR40TA PT; +Amiodarone HCl200 MG PT; +CLOP75 PT; +MELA3 PT; +XARELTO20 MG PT
[2018-12-06 12:08] LABS: BASOPHILS ABSOLUTE AUTO 0.03 K/mm3 (0.00-0.23); BASOPHILS PERCENT AUTO 0 % (0-2); EOSINOPHILS ABSOLUTE AUTO 0.11 K/mm3 (0.00-0.68); EOSINOPHILS PERCENT AUTO 1 % (0-6); Hematocrit 36.8 % (37.0-53.0); Hemoglobin 13.1 g/dL (13.5-17.5); IMMATURE GRAN ABSOLUTE AUTO 0.08 K/mm3 (0.00-0.10); IMMATURE GRAN PERCENT AUTO 1 % (0-1); LYMPHOCYTES ABSOLUTE AUTO 0.68 K/mm3 (0.84-5.20); LYMPHOCYTES PERCENT AUTO 5 % (21-46); MONOCYTES ABSOLUTE AUTO 1.18 K/mm3 (0.16-1.47); MONOCYTES PERCENT AUTO 9 % (4-13); Mean Corpuscular HGB 31.3 pg (26.0-34.0); Mean Corpuscular HGB Conc 35.6 g/dL (31.5-36.5); Mean Platelet Volume 8.8 fL (9.1-12.4); NEUTROPHILS ABSOLUTE AUTO 10.84 K/mm3 (1.96-9.15); NEUTROPHILS PERCENT AUTO 84 % (41-73); Platelet Count 393 K/mm3 (150-400); RDW Coefficient Variation 11.4 % (11.7-14.2); RDW Standard Deviation 37.1 fL (35.1-46.3); Red Blood Cell Count 4.18 M/mm3 (4.30-5.90); White Blood Cell Count 12.92 K/mm3 (4.00-11.30)
[2018-12-06 12:14] LABS: Mean Corpuscular Volume 88 fL (80-100); Troponin I 0.017 ng/mL (0.000-0.040)
[2018-12-06 12:33] LABS: Alanine Aminotransfer (ALT/SGP 28 U/L (12-78); Albumin, Blood 2.5 g/dL (3.4-5.0); Albumin/Globulin Ratio 0.6 (0.8-1.8); Alk Phos 61 U/L (50-136); Anion Gap 7 mmol/L (6-16); Aspartate Aminotrans (AST/SGOT 26 U/L (12-37); Bilirubin, Total 0.7 mg/dL (0.1-1.0); Blood Urea Nitrogen 11 mg/dL (8-24); Bun/Creatinine Ratio 23.8 (12.0-20.0); CO2, Blood 33 mmol/L (21-32); Calcium, Blood 8.3 mg/dL (8.5-10.1); Chloride, Blood 75 mmol/L (98-108); Creatinine, Blood 0.46 mg/dL (0.60-1.20); Globulin, Blood 4.1 g/dL (2.2-4.0); Glomerular Filtration Rate >60 (60-); Glucose, Blood 127 mg/dL (70-99); Potassium, Blood 4.6 mmol/L (3.5-5.5); Sodium, Blood 115 mmol/L (136-145); Total Protein, Blood 6.6 g/dL (6.4-8.2)
[2018-12-06 13:42] LABS: Source, Urine Clean Catch
[2018-12-06 13:58] LABS: Bilirubin, Urine Neg (Neg); Blood, Urine 4+ (Neg); Glucose Qualitative, Urine Neg (Neg); Ketones, Urine Neg (Neg); Leukocyte Esterase, Urine Neg (Neg); Nitrite, Urine Neg (Neg); Protein, Urine 1+ (Neg); Urobilinogen, Urine 1+ (Normal)
[2018-12-06 14:22] LABS: Appearance, Urine Clear (Clear); Color, Urine Yellow (P-Yellow)
[2018-12-06 14:25] LABS: Bacteria Rare /hpf; Red Blood Cells, Urine 50-100 /hpf (0-2); Squamous Epithelial Cells Few /hpf (Few); White Blood Cells, Urine 0-2 /hpf (0-5)
--- NOTE | 2018-12-06 17:41 | NUR ---
NEW ER ADMIT THIS AFTERNOON, RECENTLY D/C FROM HOSP AFTER STEMI TX & PEG TUBE PLACEMENT. DAUGHTER ACTS CAREGIVER @ HOME BROUGHT HIM BACK TO ER BECAUSE SHE HAD DIFFICULTY FLUSHING PEG TUBE. ADMITTED D/T CL NA+ 115 & POSSIBLE PNEUMONIA. WBC 12.9, IV ANTIBX GIVEN IN ER. NS BOLUS 500ML GIVEN ON ARRIVAL TO ROOM, NS CONTINUES CONTINUOUSLY @ 75 ML/HR. GRAY MIXING OPERATOR PLACE ORDERS FOR CONTINUOUS JEVITY TUBE FEEDING @ 55 ML/HR w WATER FLUSH 150ML Q4 HRS. PEG FLUSHES EASILY, NO RESIDUAL. SCHEDULED MEDS GIVEN CRUSHED VIA TUBE. HOB @ 45 DEGREES. SX & ORAL SPONGES PROVIDED, RISK FOR ASPIRATION REVIEWED w PT & DAUGHTER WHO WILL SPEND THE NIGHT. VSS.
[2018-12-07 05:02] LABS: BASOPHILS ABSOLUTE AUTO 0.04 K/mm3 (0.00-0.23); BASOPHILS PERCENT AUTO 0 % (0-2); EOSINOPHILS ABSOLUTE AUTO 0.17 K/mm3 (0.00-0.68); EOSINOPHILS PERCENT AUTO 2 % (0-6); Hematocrit 33.2 % (37.0-53.0); Hemoglobin 11.6 g/dL (13.5-17.5); IMMATURE GRAN ABSOLUTE AUTO 0.07 K/mm3 (0.00-0.10); IMMATURE GRAN PERCENT AUTO 1 % (0-1); LYMPHOCYTES ABSOLUTE AUTO 0.75 K/mm3 (0.84-5.20); LYMPHOCYTES PERCENT AUTO 7 % (21-46); MONOCYTES ABSOLUTE AUTO 1.22 K/mm3 (0.16-1.47); MONOCYTES PERCENT AUTO 12 % (4-13); Mean Corpuscular HGB 30.9 pg (26.0-34.0); Mean Corpuscular HGB Conc 34.9 g/dL (31.5-36.5); Mean Corpuscular Volume 88 fL (80-100); Mean Platelet Volume 8.5 fL (9.1-12.4); NEUTROPHILS ABSOLUTE AUTO 7.93 K/mm3 (1.96-9.15); NEUTROPHILS PERCENT AUTO 78 % (41-73); Platelet Count 369 K/mm3 (150-400); RDW Coefficient Variation 11.5 % (11.7-14.2); Red Blood Cell Count 3.76 M/mm3 (4.30-5.90); White Blood Cell Count 10.18 K/mm3 (4.00-11.30)
[2018-12-07 05:19] LABS: Magnesium, Blood 1.7 mg/dL (1.6-2.4)
[2018-12-07 05:40] LABS: Alanine Aminotransfer (ALT/SGP 25 U/L (12-78); Albumin, Blood 2.1 g/dL (3.4-5.0); Albumin/Globulin Ratio 0.6 (0.8-1.8); Alk Phos 55 U/L (50-136); Anion Gap 4 mmol/L (6-16); Aspartate Aminotrans (AST/SGOT 20 U/L (12-37); Bilirubin, Total 0.4 mg/dL (0.1-1.0); Blood Urea Nitrogen 12 mg/dL (8-24); Bun/Creatinine Ratio 22.9 (12.0-20.0); CO2, Blood 35 mmol/L (21-32); Calcium, Blood 7.7 mg/dL (8.5-10.1); Chloride, Blood 78 mmol/L (98-108); Creatinine, Blood 0.52 mg/dL (0.60-1.20); Globulin, Blood 3.6 g/dL (2.2-4.0); Glomerular Filtration Rate >60 (60-); Glucose, Blood 184 mg/dL (70-99); Potassium, Blood 4.2 mmol/L (3.5-5.5); Sodium, Blood 117 mmol/L (136-145); Total Protein, Blood 5.7 g/dL (6.4-8.2)
--- NOTE | 2018-12-07 07:40 | NUR ---
SHIFT SUMMARY: VSS. AFEB. A/OX4. FALLS IN AND OUT OF SLEEP, EVEN MID CONVERSATION. AWAKENS EASILY. REPORTS CHRONIC INSOMNIA DUE TO BACK PAIN. ANALGESIC AND ANTIANXIETY MEDICATION ADMINISTERED ORDERED PER PT REQUEST. SLEPT FOR A FEW HOURS ONLY AFTER MEDS. SLEPT IN A RECLINER THE SECOND HALF OF THE NIGHT AND REPORTED HE FELT MORE COMFORTABLE. TF CONTINUOUSLY THROUGH THE NIGHT. PEG TUBE RESIDUAL CHECKED Q4HRS. WITHIN RANGE. T/F WITH SBA AND TUBING ASSIST TO BEDSIDE COMMODE. STRONG WITH T/F, BUT REPORTS WEAKNESS WITH AMBULATION MORE THAN A VERY SHORT DISTANCE. NO N/V. PLEASANT AND MAKES NEEDS KNOWN. FAMILY AT BEDSIDE. CALL DOBBINS WITHIN REACH. NO COMPLAINTS OR REQUESTS AT THIS TIME.
--- NOTE | 2018-12-07 19:08 | NUR ---
SHIFT SUMMARY IRON REQUESTED PAIN MEDICATION TWICE THIS SHIFT, OXY AND TYLENOL WHICH WORKED WELL. PEG TUBE INCREASED FROM 55ML/HR OF JEVITY TO 65ML/HR. HOB KEPT UP, PT EDUCATED ON IMPORTANCE OF THIS. DAUGHTER AT BS MOST OF DAY. SBA TO BR. CBGS STABLE THIS SHIFT. RESIDUALS FROM TF WERE NEVER MORE THAN 5ML. ALL MEDS GIVEN THROUGH PEG TUBE. ORAL CARE PERFORMED MULTIPLE TIMES BY PT. CALL LIGHT IN REACH, [facility]
[2018-12-08 04:32] LABS: BASOPHILS ABSOLUTE AUTO 0.02 K/mm3 (0.00-0.23); BASOPHILS PERCENT AUTO 0 % (0-2); EOSINOPHILS ABSOLUTE AUTO 0.08 K/mm3 (0.00-0.68); EOSINOPHILS PERCENT AUTO 1 % (0-6); Hematocrit 33.4 % (37.0-53.0); Hemoglobin 11.4 g/dL (13.5-17.5); IMMATURE GRAN ABSOLUTE AUTO 0.05 K/mm3 (0.00-0.10); IMMATURE GRAN PERCENT AUTO 1 % (0-1); LYMPHOCYTES ABSOLUTE AUTO 0.65 K/mm3 (0.84-5.20); LYMPHOCYTES PERCENT AUTO 7 % (21-46); MONOCYTES ABSOLUTE AUTO 0.99 K/mm3 (0.16-1.47); MONOCYTES PERCENT AUTO 10 % (4-13); Mean Corpuscular HGB 30.7 pg (26.0-34.0); Mean Corpuscular HGB Conc 34.1 g/dL (31.5-36.5); Mean Corpuscular Volume 90 fL (80-100); Mean Platelet Volume 8.3 fL (9.1-12.4); NEUTROPHILS ABSOLUTE AUTO 8.03 K/mm3 (1.96-9.15); NEUTROPHILS PERCENT AUTO 82 % (41-73); Platelet Count 387 K/mm3 (150-400); RDW Coefficient Variation 11.8 % (11.7-14.2); Red Blood Cell Count 3.71 M/mm3 (4.30-5.90); White Blood Cell Count 9.82 K/mm3 (4.00-11.30)
[2018-12-08 04:48] LABS: Anion Gap 6 mmol/L (6-16); Blood Urea Nitrogen 14 mg/dL (8-24); Bun/Creatinine Ratio 25.2 (12.0-20.0); CO2, Blood 36 mmol/L (21-32); Calcium, Blood 7.6 mg/dL (8.5-10.1); Chloride, Blood 79 mmol/L (98-108); Creatinine, Blood 0.56 mg/dL (0.60-1.20); Glomerular Filtration Rate >60 (60-); Glucose, Blood 180 mg/dL (70-99); Potassium, Blood 4.4 mmol/L (3.5-5.5); Sodium, Blood 121 mmol/L (136-145)
--- NOTE | 2018-12-08 05:04 | NUR ---
SHIFT SUMMARY PT HAS NOT HAD ANY COMPLAINTS OF PAIN THIS SHIFT. WHEN CHECKING HIS RESIDUAL THIS AM SCANT AMOUNT OF IRON RED BLOOD SEEN. PT PULSE ELEVATED AND HE IS HAVING DELAYED CLOTTING IN FINGER AFTER CBG AND DELAYED CLOTTING AFTER IV REMOVED. PROVIDER WAS CONTACTED. INR ORDERED. WILL CONTINUE TO MONITOR.
[2018-12-08 05:07] LABS: International Normalized Ratio 1.08; Prothrombin Time Results 11.4 Sec (9.7-11.5)
--- NOTE | 2018-12-08 07:33 | NUR ---
ELEVATED HR DR. CHUA CALLED THIS AM IN REGAURDS OF PT HR IN THE 120S. OVERNIGHT IT WAS UP TO THE 130S. SBP 89 THIS AM. TELE ORDERED. DR. CHUA ORDERED TO HOLD INDERAL & GIVE 0900 AMIO NOW. WILL CONTINUE TO MONITOR.
--- NOTE | 2018-12-08 10:32 | NUR ---
IV METOPEROL GIVEN DR. CHUA ORDERED TO GIVEN IV METOPEROL DOSE. BP 99/71. STATED SLOWING RATE MAY INCREASE BP. WILL CONTINUE TO MONITOR.
[2018-12-08 10:41] LABS: Magnesium, Blood 1.8 mg/dL (1.6-2.4); Troponin I 0.027 ng/mL (0.000-0.040)
--- NOTE | 2018-12-08 10:48 | NUR ---
PROVIDER CONSULT CALLED TO CARDIOLOGY, DR ALEXANDER CONTINUOUS TOWEL ROLLER. MESSAGE LEFT WITH SCOTT AT ANSWERING SERVICE
--- NOTE | 2018-12-08 12:35 | NUR ---
PT REQUIRING 2L O2 WHILE SLEEPING. PT DESATTING TO THE MID 80S WHEN SLEEPING. 2L O2 APPLIED TO PT MOUTH (MOUTH BREATHER). PT NOW SATING IN THE MID 90S. WILL CONTINUE TO MONITOR.
--- NOTE | 2018-12-08 13:51 | NUR ---
SBP 87, HR 130S DR. MONTEMAYOR UPDATED ON PT RATE & BP. DR. MONTEMAYOR PLANS TO TRANSFER PT TO PCU & MAKE SOME MED CHANGES. 250ML BOLUS OF NS STARTED NOW. WILL CONTINUE TO MONITOR.
--- NOTE | 2018-12-08 14:41 | NUR ---
PT TRANSFERED TO PCU8 PT TRANSFERED TO PCU8 AT 1430. PT SBP PRIOR TO TRANSFER WAS 75. HR IN THE 130S. PT 250ML BOLUS GIVEN PRIOR TO TRANSFER. AMIO DRIP TO BE STARTED IN PCU. AWAITING TO GIVE REPORT TO CHANTEL Souza RN. PT BELONGINGS MOVED TO NEW ROOM. PT DAUGHTER CALLED WITH NEW ROOM ASSIGNMENT.
--- NOTE | 2018-12-08 15:11 | NUR ---
REPORT GIVEN TO CHANTEL Souza RN.
[2018-12-08 17:42] LABS: Anion Gap 5 mmol/L (6-16); Blood Urea Nitrogen 14 mg/dL (8-24); Bun/Creatinine Ratio 25.4 (12.0-20.0); CO2, Blood 36 mmol/L (21-32); Calcium, Blood 7.6 mg/dL (8.5-10.1); Chloride, Blood 81 mmol/L (98-108); Creatinine, Blood 0.55 mg/dL (0.60-1.20); Glomerular Filtration Rate >60 (60-); Glucose, Blood 147 mg/dL (70-99); Potassium, Blood 4.3 mmol/L (3.5-5.5); Sodium, Blood 122 mmol/L (136-145)
--- NOTE | 2018-12-08 18:39 | NUR ---
NURSING PCU DAYSHIFT SUMMARY: Assumed care of pt at approx 1430. A/O, very pleasant, cooperative w/care. General weakness noted, able to ambulate short distances w/use of FWW and SBA. Skin is fragile though intact, scattered bruising noted. Tele in place, afib, BP stable, no c/o CP/pressure. L/S coarse, frequent cough producing thick/cream colored sputum, O2 sat upper 90's on RA, respirations shallow and irregular, dyspnea w/minimal exertion. Abd SNT, BT+, PEG tube in place w/Jevity infusing at goal rate of 65cc/hr. PIV x1, NS infusing at 100cc/hr at arrival. Seen by PMD and resistor tester, new d/o received. Amiodarone bolus administered and gtt started at 1 mg/min (33.3 mls/hr) per protocol dosing. HR averaging 90-110, SBP 90's. Head CT and CXR completed, results reviewed. Family at bedside t/o majority of the afternoon. Pt and family deny any current needs or questions regarding plan of care. Pt remains OOB in recliner, call light in reach, cont to monitor until rpt is given to NOC RN.
--- NOTE | 2018-12-09 07:29 | NUR ---
END OF SHIFT SUMMARY NO ACUTE CHANGES THIS SHIFT EXCEPT ANXIETY. VSS. CONTINUOUIS TUBE FEEDINGS CONTINUE, MINUTE RESIDUALS. TUBE PATENT. IVS REMAIN PATENT. PT CONTINUES ON AMIODORONE GTT, BP/HR SUSTAIN STABLE. ORAL CARE PROVIDED. FAMILY AT BEDSIDE T/O NIGHT. P[T CONTINUES TO HAVE COARSE UPPER LOBES, SELF SUCTIONS WELL WITH THIN SECRETIONS WHITE. HAS BEEN ANXIUS AT TIMES AND HAS STRUGGLED TO SLEEP. MEDS PER EMAR GIVEN. PT HAS BEEN UP AND OUT OF BED THIS SHIFT, TRANSFERRED WELL. OTERWISE, PT USEW CALL LIGHT APPROPRIATELY, WITHIN REACH. BED MAINTAINED LOW IN >45 DEGREES. REPORT GIVEN TO ONCOMING RN.
[2018-12-09 11:48] LABS: Uric Acid, Blood 1.4 mg/dL (3.5-7.2)
--- NOTE | 2018-12-09 15:00 | NUR ---
CHANGE OF MENTATION RESPONDING TO JERRI PAL'S REQUEST FOR ASSISTANCE, FOUND PT SITTING ON SIDE OF BED IN NO SIGNS OF DISTRESS REQUESTING TO WALK TO THE BATHROOM. LEIGHE DEMARCO WAS SUGGESTING USE OF COMMODE, WHICH COULD BE PLACED CLOSER, BUT PT EXPRESSED WISHES TO BE IN THE BATHROOM, AND VERBALIZED THAT HE EXPECTED TO WALK THERE. AT THIS POINT, PT'S MENTATION, MEASURED THROUGH HIS SPEECH AND ACTIONS, WAS MILDLY MORE DISTRACTED AND DELAYED THAN HIS NORM, BUT HE WAS CONSISTENT IN HIS DESIRE TO WALK TO THE BATHROOM. IT REQUIRED 2 STAFF AND 5 FULL MINUTES OF COACHING AND QUESTIONING TO ASSIST PT TO STANDING, NOT BECAUSE OF WEAKNESS, BUT BECAUSE PT COULD NOT FOLLOW A TRAIN OF THOUGHT, AND WAS RESPONDING EVER MORE POORLY TO PROMPTING. PT'S BASELINE INCLUDES BRIEF PERIODS OF LOSS OF THOUGHT AND ACTION, THE ATTEMPT TO ASSIST PT TO THE BATHROOM CONTINUED. ONCE THE PATIENT FINALLY STOOD UP, HE DID SO NORMALLY AND EASILY, AND WALKED A FEW STEPS WITH HIS WALKER TOWARD THE BATHROOM WITH APPROPRIATE BALANCE AND MUSCLE CONTROL. PT PAUSED A FEW TIMES HE NEARED THE BATHROOM DOOR, BUT WAS USING HAND GESTURES, SIGN LANGUAGE FOR "YES" AND "NO" INSTEAD OF VERBAL SPEECH, AND REPEATING HIMSELF IN SUCH. IT WAS DETERMINED THAT IT WAS NO LONGER SAFE TO CONTINUE, AND PT WAS PROMPTED TO RETURN TO HIS RECLINER AT BEDSIDE. PT'S MOTION AND RESPONSE WAS PATCHY, BUT QUICKER AND EASIER RESOLVED HE AGREED TO MOVE TO THE RECLINER, BECOMING EVER MORE FLUID AND RESPONSIVE TO DIRECTION; ONCE SITTING IN THE RECLINER, PT WAS ABLE TO SPEAK AGAIN, AND VERBALIZED THAT "IT WAS IF HE HAD BEEN IN A DIFFERENT WORLD." AT THIS POINT, PT'S SPEECH, ACTION AND MENTATION APPEARED TO BE UNCHANGED FROM INITIAL ASSESSMENT AT THE BEGINNING OF SHIFT. CARE AT THIS TIME WAS PASSED ON TO OTHER STAFF, PT SITTING ALERT IN RECLINER, CALL LIGHT W/IN REACH MENTATION APPEARED TO DETERIORATE THE INTERVENTION CONTINUED IT BECAME OBVIOUS THAT PT WAS NOT THINKING CLEARLY AND WAS AFFECTED OR LOST WITHIN INNER PROCESSES INVISIBLE TO JERRI AND RN.
[2018-12-09 16:30] LABS: Anion Gap 4 mmol/L (6-16); Blood Urea Nitrogen 13 mg/dL (8-24); Bun/Creatinine Ratio 23.4 (12.0-20.0); CO2, Blood 34 mmol/L (21-32); Calcium, Blood 7.6 mg/dL (8.5-10.1); Chloride, Blood 85 mmol/L (98-108); Creatinine, Blood 0.56 mg/dL (0.60-1.20); Glomerular Filtration Rate >60 (60-); Glucose, Blood 173 mg/dL (70-99); Potassium, Blood 4.4 mmol/L (3.5-5.5); Sodium, Blood 123 mmol/L (136-145)
--- NOTE | 2018-12-09 17:49 | NUR ---
NURSING PCU DAYSHIFT/PT MENTATION CHANGE Pt fairly oriented t/o majority of the shift. Conversed w/staff members and family at bedside, cooperative w/medical and personal care being provided. At approx 1500 pt wanted OOB, staff at bedside to assist. Pt was reported as becoming mildly disoriented while sitting on bedisde, though able to stand and ambulate to bathroom w/two staff assist. At approx 1515 this RN entered room and noted pt standing in bathroom w/staff x2. Pt unable to verbalize needs, unable to answer any questions, attempted to use hand signals to communicate. Pt was difficult to direct and unable to process commands. PMD notified of change in pt's status and assessed pt in room as soon as pt was able to be directed to chair. Once sitting, pt able to begin speaking simple words/sentences again though has remained very confused. Expresses sense of impending doom and feeling of "euphoria" and being "high". Not allowing ABG to be drawn or IV medications to be administered, appears fearful of any medication administration. Daughter currently at bedside, update provided. Daughter is tearful though supportive of plan of care. Discussed code status, daughter states it was pt's wishes to remain full care when oriented so code status will remain unchanged. Staff and daughter remain at bedside, cont to monitor until rpt is given to NOC RN.
[2018-12-09 17:51] LABS: Base Excess Venous 10.9 mmol/L; PO2 Venous 29.7 mmHg (38-42); pH Blood Venous 7.41 (7.34-7.37)
--- NOTE | 2018-12-09 17:55 | NUR ---
ASSUMED CARE OF PT ASSUMED CARE OF PT AT 0700. AT 0745 ASSESSMENT PT WAS ALERT AND CONVERSIVE, LYING IN BED, IN NO SIGNS OF DISTRESS. MENTATION WAS OBSERVED TO BE WITHIN NORMAL LIMITS FOR THIS PT, NAMELY SLOW TO RESPOND AND DISTRACTED IN TRAIN OF THOUGHT AND SPEECH, BUT COHERENT AND CONSISTENT IN BOTH. VS WERE W/IN NORMAL LIMITS. PATIENT DENIED PAIN, DENIED DISCOMFORT, DENIED N/V, AND WAS ATTENTIVE TO INTERVENTION AND EDUCATION. PT WAS LEFT FOUND, BED LOCKED AND LOW, CALL LIGHT IN REACH
--- NOTE | 2018-12-09 20:30 | NUR ---
1899, PTs DAUGHTER CALLS THIS RN, CHANTEL AND KAROLINE RN TO ROOM FEARFUL THET PT IS HAVING A STROKE. PT PRESENTS WITH MINOR L FACIAL DROOP, EXPRESSIVE DYSPHAGIA, AND R SIDED TONGUE DEVIATION. PT STRUGGLING TO UNDERSTAND TO SMILE. TICKET WORKER STREONG AND EQUAL BILATERAL. PUPILS EQUALLY REACTIVE TO LIGHT. DR CHUA CALLED WITH RESULTS. HEAD CT ORDERED. VSS DURING THIS. 2032 CT RESULTS RETURN INTERPRETED W/O ACUTE HEMORRHAGE AND NO OTHER ACUTE FINDINGS. DR HOGAN CALLED, UPDATED ON CONDITION. DR TO PLACE HEPARIN GTT ORDER. WILL CONTINUE TO MONITOR FOR INCREASED NEURO CHANGE, WORSENING VS, FAILURE TU MAINTAIN AIRWAY, ETC.
--- NOTE | 2018-12-10 01:57 | NUR ---
PROVIDER NOTIFIED DR MONSALVE UPDATED ON THISD PT'S STATUS. CALLED REGARDING HR AFIB 130'S MAINTAING. PROVIDER TOLD ABOUT PT PREVIOUSLY ON AMIODORONE DRIP AND HAD BEEN SWITCHEWD TO METOPROLOL. DISCUSSED OTHER AREAS OF PT STATUS. PROVIDER OTRDER FOR IV LOPRESSOR 5MG NOW AND NANOTHER DOISE 30 MINUTES POST IF UNSUCCESFUL FOR RATE CONTROL.
--- NOTE | 2018-12-10 07:51 | NUR ---
0400 PT REFUSING LAB DRAW, IT IS VITAL THAT WE OBTAIN THE APTT THE PT IS ON HEPARIN GTT. STAFF TRIED MULTIPLE TIMES TO CONVINCE PT TO ALLOW LAB DRAW. UNSUCCESFUL. DARON CALLED AND NOTIFIED. ORDER FOR .5 ATIVAN IV TO E GIVEN TO CALM PT DOWN ENOUGH TO OBTAIN LAB DRAW. 0500 THIS WAS UNSUCCESFUL AND APPEARED TO HAVE LITTLE EFFECT ON PT. 0640 PT PULLED IV FROM ARM INFUSING HEPARIN. PT AGITATED AT THIS POINT. DAUGHTER EMOTIONAL. MESS WAS XXLEANED UP. PT TALKED DOWN. HEPARIN ATTACHED TO SECOND IV WITH NS INFUSING. ATTEMPTED TO OBTAIN NEW IV AND DRAW LAB, PT REFUSES.
--- NOTE | 2018-12-10 07:56 | NUR ---
END OF SHIFT SUMMARY SEE MULTIPLE NOTES THIS SHIFT. PT HAS FLUXUATED IN MENTATION THIS SHIFT FROM SPEAKING, TO ONLY SIGNING WITH HANDS, TO NOT SPEAKING. PT HAS REFUSED CARE SUCH VITAS AND LABS T/O THE NIGHT BUT THEN HAS ALLOWED THEM AT OTHER TIKMES. DAUGHTER HAS BEEN AT BEDSIDE WITH PT. PT HAD EPISODE OF HR INCREASING INTO 130'S SUSTAINED, ORDER BY DARON PLACED FOR IV METOPROLOL, GIVEN, NOW MAINTAINING 100S, BP STABLE. PT CONTINUES TO END OF SHIFT W/ SLIGHT L FACIAL DROOP, EXPRESSIVE DYSPHAGIA, R TONGUE DEVIATION, STRONG RESPITE CARE PROVIDER BILA, AND FULL ROM OF EXTREMITIES. REMAINS IN AFIB. SOMETIMES DIRECTABLE, SOMETIMES NOT. PT PULLED IV. ATTEMPTING TO OBTAIN NEW ONE AND DRAW LABS HAS BEEN UNSUCCESFUL AT THIS TIME. CONTINUOUS TUBE FEEDINGS CONTINUE. ALSO NOTED, BEGINIING OF SHIFT MOTTLING OF FEET ALL THE WAY UP TO KNEES, FEET/LEGS COLD TO TOUCH. NOW, MOTTLING HAS DECREASED AND EXTREMITIES HAE WARMED SOME. REPORT GIVEN TO RODOLFO BRADY.
[2018-12-10 09:56] LABS: BASOPHILS ABSOLUTE AUTO 0.03 K/mm3 (0.00-0.23); BASOPHILS PERCENT AUTO 0 % (0-2); EOSINOPHILS ABSOLUTE AUTO 0.02 K/mm3 (0.00-0.68); EOSINOPHILS PERCENT AUTO 0 % (0-6); Hematocrit 32.8 % (37.0-53.0); IMMATURE GRAN ABSOLUTE AUTO 0.07 K/mm3 (0.00-0.10); IMMATURE GRAN PERCENT AUTO 1 % (0-1); LYMPHOCYTES ABSOLUTE AUTO 0.75 K/mm3 (0.84-5.20); LYMPHOCYTES PERCENT AUTO 6 % (21-46); MONOCYTES ABSOLUTE AUTO 1.23 K/mm3 (0.16-1.47); MONOCYTES PERCENT AUTO 10 % (4-13); Mean Corpuscular HGB 31.3 pg (26.0-34.0); Mean Corpuscular HGB Conc 33.5 g/dL (31.5-36.5); Mean Platelet Volume 8.4 fL (9.1-12.4); NEUTROPHILS ABSOLUTE AUTO 9.82 K/mm3 (1.96-9.15); NEUTROPHILS PERCENT AUTO 82 % (41-73); Platelet Count 441 K/mm3 (150-400); RDW Coefficient Variation 12.1 % (11.7-14.2); RDW Standard Deviation 41.5 fL (35.1-46.3); Red Blood Cell Count 3.51 M/mm3 (4.30-5.90); White Blood Cell Count 11.92 K/mm3 (4.00-11.30)
[2018-12-10 09:57] LABS: Mean Corpuscular Volume 93 fL (80-100)
[2018-12-10 10:15] LABS: Magnesium, Blood 1.9 mg/dL (1.6-2.4)
[2018-12-10 10:17] LABS: Albumin, Blood 2.5 g/dL (3.4-5.0); Anion Gap 7 mmol/L (6-16); Blood Urea Nitrogen 12 mg/dL (8-24); Bun/Creatinine Ratio 21.4 (12.0-20.0); CO2, Blood 33 mmol/L (21-32); Calcium, Blood 7.7 mg/dL (8.5-10.1); Chloride, Blood 87 mmol/L (98-108); Creatinine, Blood 0.56 mg/dL (0.60-1.20); Glomerular Filtration Rate >60 (60-); Glucose, Blood 172 mg/dL (70-99); Phosphorus, Blood 3.3 mg/dL (2.5-4.9); Potassium, Blood 4.9 mmol/L (3.5-5.5); Sodium, Blood 127 mmol/L (136-145)
[2018-12-10 10:21] LABS: Osmolality, Serum 268 mos/KG (275-300)
[2018-12-10 10:36] LABS: Hematocrit 32.8 % (37.0-53.0)
--- NOTE | 2018-12-10 14:17 | NUR ---
Spiritual care visit conducted. Patient is sitting on a chair and alert. Patient is confused and afraid, by his own words. Patient is on a loop of certain words but every few minutes patient will verbalize things like, "I'm scared," "I love you the angels who care for me," or "I am trying so hard." I helped distract patient while he was changed, given a sponge bath and received an IV line. Patient's daughter is also present and is calm, reassuring and soothing to patient. I listen empathically and provide a calming presence, levity and reinforce helpful attitudes and practices. Patient responds well and allows for the care that he needs to be given. I will continue to be available to patient and family.
--- NOTE | 2018-12-10 19:30 | NUR ---
Clinical Visit: Code status change Nurse came to office and provided a POLST form, filled out by granddaughter, Cece. Comfort measures only. Family and staff are distressed about pt's acting out, agitation, anxiety, and making statements such as, "Let me !" Called and spoke to Dr. Vergara. She would like to hold off on comfort orders until CT scan report gets back. Behavior may be related to the stroke. She agrees to DNR/DNI status and will speak to the family in the morning. Went to room and spoke with Cece. She is very distressed and crying. She states, "he hates me, he said that. He says that he wishes that he were ." She tearfully relates that she things that he will thinking that she doesn't love her. Cece has not been home in days, has not slept in days. Encouraged Cece to go home and sleep, take a shower. She refuses. She belives that something bad will happen to him while she is gone and will without knowing that she loves him. He is saying terribly hurtful things to her. She has severe caregiver stress, exhaustion, and emotional heartache. Cece states that she will not go home, not with him like this. Her family members will be in town from [place] on Monday. Asked her to see if they can come sooner. There is her cousin present; he was updated on situation and agrees that the pt is "just not himself." Cousin, Jose, is giving emotional support to Cece, but is not able to stay much longer with her. Again encouraged Cece to go home and rest, but she is resistant to the idea. Will remain available if needed. Check on pt and family in the morning. Dr. Vergara aware of situation.
--- NOTE | 2018-12-10 19:48 | NUR ---
CT SCAN TALKED WITH DR CHUA ABOUT PT ABILITY TO FOLLOW DIRECTIONS AND LAY STILL FOR THE CT ANGIOGRAM. DR CHUA ORDERED VALIUM 5MG IV. TALKED WITH WESTON, PT DAUGHTER, AND WE DECIDED TO WAIT UNTIL IN CT SCAN TO SEE HOW PT DID. THIS NURSE WENT WITH TO CT SCAN TO HELP WITH PT. TOOK VALIUM WITH. PT WAS UNABLE TO LAY STILL OR FOLLOW DIRECTIONS. HE WAS PUTTING HIS LEGS OVER THE SIDE OF THE TABLE. HE WAS LIFTIN HIS HEAD. TRIED A HEAD STRAP. DID NOT HELP. THIS NURSE WORE A LEAD APPRON AND STAYED IN THE CT ROOM WITH PT. CLIENT ADVISOR REQUESTED VALIUM TO BE GIVEN. PT WAS TALKING AND WANTING TO WATCH THE VIDEO OF LLUVIA CERRATO. ADMINISTERED VALIUM 5MG IV X1 SLOW PUSH. PT SLOWLY RELAXED AND CLOSED HIS EYES. STAYED WITH HIM DURING CT. ON THE WAY BACK HE WAS TALKING AND LOOKING AT WESTON. SLIDE HIM BACK IN BED. HE LAYED BACK AND CLOSED HIS EYES. PT HAD BEEN INCONTINENT OF STOOL. WE STARTED TO CLEAN HIM UP. NOTED THAT PT HAD STARTED SNORING. CHECKED HIS VS DURING CLEAN UP. SAT 80% ON RA. HE BARELY OPENED HIS EYES. PLACED A N/C 6L IN HIS MOUTH AND DID A JAW THRUST. SAT IMPROVED TO 95%. CALLED TONY TRIVEDI R/T. HE CAME PLACED A NON REBREATHER ON PT. CALLED DR CHUA. ORDER FOR ROMAZICON RECEIVED. ADMINISTERED ROMAZICON 0.2 MG IV X1. PT AWAKENED ALMOST IMMEDIATELY. SAT UP AND WAS VERY ANGRY AND AGGITATED. HE WAS CUSSING AND SWEARING. THROWING THE CALL LIGHT. HE ATTEMPTED TO PULL HIS PEG TUBE OUT. HE WAS SPITTING AT WESTON. RESTRAINTES WERE BROUGHT INTO THE ROOM AND A SPIT MASK. HE ONLY WANTED TO HOLD THIS NURSES HAND. VSS. BACK TO ROOM AIR WITH IN A COUPLE MINUTES. CONTINUE POT.
--- NOTE | 2018-12-10 20:09 | NUR ---
CODE STATUS CHANGE AFTER PT AWAKENED FROM THE VALIUM. HE WAS VERY CLEAR ABOUT NOT WANTING ANYTHING MORE. PT STATED TO WESTON AND THIS NURSE THAT HE WAS DONE. THIS WAS BULLSHIT. HE WANTED TO . HE WAS VERY TIRED. HE WANTED TO GO "SEE LESVIA." WESTON WAS VERBALLY UNDERSTANDING AND REASSURED PT THAT SHE SUPPORTED HIS CHOICE. PT RELATED THAT HE HAD SEEN LESVIA LAST AND WANTED TO GO HUG HIM. LESVIA WAS HIS SON WHO . TALKED WITH WESTON ABOUT PT CURRENT CODE STATUS AND WHAT THAT MENT. SHE STATED THAT SHE WANTED TO SUPPORT HIS DECISION. GOT A POLST FORM AND SHOWED IT TO WESTON. SHE FILLED IT OUT. PT AGREED THAT HE DIDN'T WANT THIS ANYMORE. GAVE THE POLST TO BIRDIE RN IN PALATIVE CARE. DNR ORDER RECEIVED. CONTINUE POT.
--- NOTE | 2018-12-10 20:18 | NUR ---
APTT PT WAS SCHEDULED TO HAVE AN APTT AT 1800. HE WAS THROWING AND YELLING AT THAT TIME. SENT THE LAB PERSON AWAY. ASKED PT IF HE WOULD ALLOW A BLOOD DRAW, AFTER HE CALMED DOWN, HE STATED, "NO! THIS IS BULL SHIT. i SAID NO. NO.NO". CONTINUE POT.
[2018-12-11 06:48] LABS: BASOPHILS ABSOLUTE AUTO 0.04 K/mm3 (0.00-0.23); BASOPHILS PERCENT AUTO 0 % (0-2); EOSINOPHILS ABSOLUTE AUTO 0.03 K/mm3 (0.00-0.68); EOSINOPHILS PERCENT AUTO 0 % (0-6); Hematocrit 30.6 % (37.0-53.0); Hemoglobin 10.1 g/dL (13.5-17.5); IMMATURE GRAN ABSOLUTE AUTO 0.07 K/mm3 (0.00-0.10); IMMATURE GRAN PERCENT AUTO 0 % (0-1); LYMPHOCYTES PERCENT AUTO 1 % (21-46); MONOCYTES ABSOLUTE AUTO 0.43 K/mm3 (0.16-1.47); MONOCYTES PERCENT AUTO 2 % (4-13); Mean Corpuscular HGB 31.3 pg (26.0-34.0); Mean Corpuscular Volume 95 fL (80-100); Mean Platelet Volume 8.5 fL (9.1-12.4); NEUTROPHILS ABSOLUTE AUTO 16.94 K/mm3 (1.96-9.15); NEUTROPHILS PERCENT AUTO 96 % (41-73); Platelet Count 388 K/mm3 (150-400); RDW Coefficient Variation 12.5 % (11.7-14.2); RDW Standard Deviation 43.3 fL (35.1-46.3); Red Blood Cell Count 3.23 M/mm3 (4.30-5.90); White Blood Cell Count 17.61 K/mm3 (4.00-11.30)
[2018-12-11 07:06] LABS: Albumin, Blood 2.4 g/dL (3.4-5.0); Anion Gap 6 mmol/L (6-16); Blood Urea Nitrogen 13 mg/dL (8-24); Bun/Creatinine Ratio 24.1 (12.0-20.0); CO2, Blood 34 mmol/L (21-32); Chloride, Blood 88 mmol/L (98-108); Creatinine, Blood 0.54 mg/dL (0.60-1.20); Glomerular Filtration Rate >60 (60-); Glucose, Blood 228 mg/dL (70-99); Magnesium, Blood 1.9 mg/dL (1.6-2.4); Potassium, Blood 4.3 mmol/L (3.5-5.5); Sodium, Blood 128 mmol/L (136-145)
--- NOTE | 2018-12-11 07:54 | NUR ---
Bedside report received from Elroy Mccabe RN. The pt appears to be sleeping, respirations are even and unlabored. His daughter Natalie is also at the bedside, in a recliner and appears to be sleeping comfortably. bilateral soft wrist restraints are in place, without impedment of circulation.
--- NOTE | 2018-12-11 08:20 | NUR ---
END OF SHIFT SUMMARY BEGINNING OF SHIFT: PT STILL SPEAKIGN WITH DAUGHTER BUT GARBLED AND INCOMPREHENSIBLE MOSTLY, IS ABLE TO MAKE A FEW APPROPRAITE REFERENCES. TONGUE DEVIATION AND FACIAL DROPP STILL NOTED BUT LESSENED. MOTTLING KNEE HIGH. VSS. DAUGHTER WESTON REMAINS IN ROOM WITH PATIENT. PT NOT NOTED TO BE PULLING AT LINES. PT BEING COMOPULSIVE WITH ACTIONS, SPITTING, SHOUTING, CUSSING, ETC. PT DID CALM DOWN. HR WAS MAINTAINING 100'S. FEEDING TUBE REMAINING TO BE INGUSED INTO. MULTIPLE IV LINES BEING INFUSED INTO. SKIN INTACT. END OF SHIFT: IV METOPROL 5MG HAD TO BE GIVEN FOR RATE CONTROL OF 140'S. MOTTLING THIGH HIGH, FEET EXTREMELY COLD. MENTATION HAS DROPPED TO NOT SPEAKIGN AND LOOKING VERY ANXIOUS. PT NOT FINALLY ASLEEP AFTER AT LEAST THREE STRAIGJHT DAYS OF NO SLEEP. O2 DEMAND UP FROM RA TO 3L. PT FOUND TO BE PULLING AT PEG TUBE AND LINES, ORDERS FOR SIDERAILS X4 AND BILAT SOFT WRIST RESTRAINTS ORDERED FORN CONFUSION, FALL RISK, AND TO PROTECT LINES AND PEG TUBE. PT INCONTINENT OFTEN NOW. HEPARIN GTT CONTINUES/TITRATED. DAUGHTER UPDATED ON POC AND PATIENT CONDITION. REPORT GIVEN TO ONCOMING RN.
--- NOTE | 2018-12-11 10:02 | NUR ---
Clinical Visit: Pt restrained, calm, resting comfortably. Granddaughter, Cece, is bedside. She states that pt slept around 3am. She did get a little bit of sleep, sitting in in the recliner at his side. She has plans to go home, but wants to be here when he wakes up. Instructed that he may rest for a while and it would be a good time to go get fresh clothes. She agrees, but would like to wait for the doctor to come by. Call placed to Dr. Vergara to update on conversation with family.
--- NOTE | 2018-12-11 13:07 | NUR ---
1205 Vital signs were taken, the pt comfort was assessed, and oral care was being done in the room for the patient. He appeared to be comfortable and not in any distress. While care was being done, I was at the pt's bedside and called by gianluca Roy, the monitor technician that the pt's heart rate had suddenly decreased to 40. Within seconds, the pt suddenly began to have agonal breathing and then stopped breathing. As he was a DNR, no resuscitative measures were taken. The pt's daughter was called and she asked if she should return to the hospital, and I told her yes. Dr. Doherty was called and a message left that the pt had stopped breathing, and monitor technician showed asystole. Dr. Doherty then came to the unit and spoke with myself and Martha Fisher. Chaplain Crow was called to wait in the pt 's room until the daughter arrived. 1220 Daughter arrived and is spending time in the room .
--- NOTE | 2018-12-11 13:34 | NUR ---
Shortly after patient exspired I responded to a vocera call from Patient's RN and met Patient's daughter Cece as she found her father . Cece is grieving appropriately. I provide comfort and grief support and a calming presence.
== END 2018-12-11 16:25 | DRG 177 ==
LOC: ER 10:30 → PCU 14:35 → MEDS 14:35 → PCU 12-08 14:25
PROVIDERS: Emergency Medicine; Internal Medicine; Internal Medicine Cardiovascular Disease; Internal Medicine Nephrology; Nurse Practitioner Acute Care; ADMIT Hospitalist
DX: J69.0 Pneumonitis due to inhalation of food and vomit (principal); E43 Unspecified severe protein-calorie malnutrition; I21.3 ST elevation (STEMI) myocardial infarction of unspecified site; E87.1 Hypo-osmolality and hyponatremia; G93.40 Encephalopathy, unspecified; R47.01 Aphasia; I48.20 Chronic atrial fibrillation, unspecified; J44.9 Chronic obstructive pulmonary disease, unspecified; D64.9 Anemia, unspecified; F41.9 Anxiety disorder, unspecified; F43.10 Post-traumatic stress disorder, unspecified; Z98.0 Intestinal bypass and anastomosis status; Z87.891 Personal history of nicotine dependence; Z68.21 Body mass index [BMI] 21.0-21.9, adult
CPT/HCPCS: 36415; 70450; 70496; 71045; 71046; 80048; 80053; 80069; 81001; 82533; 82803; 82947; 83605; 83735; 83930; 83935; 84145; 84295; 84300; 84443; 84484; 84550; 85014; 85018; 85025; 85610; 85730; 87040; 92523; 93005; 93010; 93880; 94640; 94667; 94760; 96365; 96367; 99285-25; A9270; J0282; J0456; J0696; J1160; J1644; J1940; J2060; J2405; J3360; J7030; J7040; J7050; J7060; Q9967